=== PATIENT | female | born 1985 | race American Indian/Alaskan Native ===

== ENCOUNTER 2016-06-17 03:30 | Outpatient (CLI) | payer MEDICAID ==
[2016-06-17 03:48] VITALS: BP 94/62
[2016-06-17 04:32] LABS: Bilirubin,Urine NEG (Negative); Blood,Urine NEG (Negative); Ketones,Urine NEG (Negative); Leukocyte Esterase,Urine NEG (Negative); Nitrite,Urine NEG (Negative); Protein,Urine <15 mg/dL mg/dL (Negative); RBC,Urine < 1.0 /HPF (0.0-6.0); Urobilinogen,Urine < 2.0 mg/dL (<2.0); WBC,Urine < 1.0 /HPF (0.0-6.0)
[2016-06-17] MEDS ORDERED: PERCOCET 5/325 PO ONE (04:32)
[2016-06-17] MEDS ORDERED: VISTARIL PO ONE (04:32)
== END 2016-06-17 04:52 | disposition home or self-care (01) ==
LOC: TRG 03:30
PROVIDERS: ATTEND Obstetrics & Gynecology
DX: O47.02 False labor before 37 completed weeks of gestation, second trimester (principal); Z3A.19 19 weeks gestation of pregnancy
CPT/HCPCS: 81001; Q0177

== ENCOUNTER 2016-07-07 00:58 | Emergency (ER) | payer MEDICAID ==
[2016-07-07 01:40] LABS: Bacteria,Urine 1+ /HPF (Negative); Bilirubin,Urine NEG (Negative); Blood,Urine NEG (Negative); Ketones,Urine NEG (Negative); Leukocyte Esterase,Urine SM (Negative); Mucus,Urine FEW /HPF; Nitrite,Urine NEG (Negative); Protein,Urine <15 mg/dL mg/dL (Negative); Urobilinogen,Urine < 2.0 mg/dL (<2.0)
[2016-07-07] MEDS ORDERED: ZOFRAN IV ONE (02:31)
[2016-07-07] MEDS ORDERED: NACL 0.9% 1000 ML 1,000 ML IV ONE (02:31)
[2016-07-07] MEDS ORDERED: TYLENOL #3 PO ONE (02:31)
[2016-07-07 03:02] LABS: Hematocrit 31.7 % (30.3-42.9); Hemoglobin 10.6 gm/dl (10.1-14.3); Mean Corpuscular HGB Conc 34 % (30-34); Mean Corpuscular Hemoglobin 30 pg (28-32); Mean Corpuscular Volume 90 fl (79-97); Platelet Count 280 K/mm3 (140-440); Red Blood Count 3.52 M/mm3 (3.65-5.03); Red Cell Distribution Width 14.5 % (13.2-15.2); White Blood Count 14.5 K/mm3 (4.5-11.0)
[2016-07-07 03:11] LABS: Alanine Aminotransferase 10 units/L (7-56); Albumin 3.3 g/dL (3.9-5); Albumin/Globulin Ratio 0.9 %; Alkaline Phosphatase 82 units/L (35-129); Anion Gap 17 mmol/L; Bilirubin,Total 0.8 mg/dL (0.1-1.2); Blood Urea Nitrogen 6 mg/dL (7-17); Calcium 8.7 mg/dL (8.4-10.2); Carbon Dioxide 22 mmol/L (22-30); Chloride 101.3 mmol/L (98-107); Glucose 72 mg/dL (65-100); Magnesium 1.9 mg/dL (1.7-2.3); Potassium 3.5 mmol/L (3.6-5.0); Sodium 137 mmol/L (137-145); Total Protein 6.9 g/dL (6.3-8.2)
[2016-07-07] MEDS ORDERED: MORPHINE IV ONE (04:00)
[2016-07-07 04:05] LABS: Anisocytosis 1+; Basophils % (Manual) 0 % (0.0-1.8); Blastocytes % (Manual) 0 %; Diff Status Complete; Elliptocytes Rare; Eosinophils % (Manual) 0 % (0.0-4.3); Polychromasia Rare
[2016-07-07 06:00] VITALS: BP 102/70
--- NOTE | 2016-07-07 06:23 | Emergency Department Report ---
HPI - General Chief Complaint: Back Pain/Injury Time Seen by Provider: 07/07/16 02:41 - HPI HPI: The patient is a , EGA 24 weeks, female that presents for evaluation of back pain. The patient reports pain to the left lower back since 10 PM last night, constant since onset, 10/10 in severity, sharp in quality, radiating into the left lower leg, exacerbated with movement of the left leg at the hip joint or of the left lower back. The patient denies blunt trauma to the back, fever, chills, night sweats, abdominal pain, vaginal discharge, vaginal bleeding , saddle anesthesia, paresthesias, numbness or tingling in the legs, leg weakness, urine or bowel incontinence or retention, difficulty ambulating, or other focal neurological deficits. ED Past Medical Hx - Past Medical History Previous Medical History?: Yes Hx Hypertension: No Hx Congestive Heart Failure: No Hx Diabetes: No Hx Deep Vein Thrombosis: No Hx Renal Disease: No Hx Sickle Cell Disease: No Hx Seizures: No Hx Psychiatric Treatment: Yes (anxiety) Hx Asthma: No Hx COPD: No Hx HIV: No Additional medical history: collapsed r) lung - Surgical History Past Surgical History?: Yes Additional Surgical History: csection lung surg - Social History Smoking Status: Never Smoker Substance Use Type: None - Medications Home Medications: Home Medications Medication Instructions Recorded Confirmed Last Taken Type Azithromycin [Zithromax] 250 mg PO QDAY #4 tablet 08/31/15 Unknown Rx Doxylamine/Pyridoxine HCl 1 each PO Q6HR PRN #30 tablet. 08/31/15 Unknown Rx [Amilcar Kirby 10-10 mg Tablet] Vit W-Ca,Fe,FA(<1 mg) 1 each PO QDAY #30 tablet 08/31/15 Unknown Rx [ Vitamins] Acetaminophen/Codeine [Tylenol #3] 1 tab PO Q6H PRN #7 tab 07/07/16 Unknown Rx Ondansetron [Zofran TAB] 4 mg PO Q8HR PRN #15 tablet 07/07/16 Unknown Rx ED Review of Systems ROS: Stated complaint: LT LEG/BACK PAIN,WEAKNESS Other details as noted in HPI Constitutional: denies: fever ENT: denies: throat or neck pain Respiratory: denies: cough, shortness of breath Cardiovascular: denies: chest pain Endocrine: denies unexplained weight loss or gain Gastrointestinal: denies: abdominal pain, nausea Genitourinary: denies: dysuria Musculoskeletal: reports back pain denies: leg swelling Skin: denies: rash Neurological: denies: headache Hematological/Lymphatic: denies: easy bleeding or easy bruising Psych: denies sadness or hopelessness Physical Exam - Physical Exam Vital Signs: Vital Signs 07/07/16 01:25 Pulse Rate 86 Respiratory 18 Rate Blood Pressure 96/57 [Right] O2 Sat by Pulse 99 Oximetry Physical Exam: General: well-nourished, well-developed, no acute distress Head: Normocephalic, atraumatic Eyes: normal sclera ENT: Mucous membranes are pale and dry Neck: No neck stiffness, no cervical adenopathy Respiratory: Breath sounds equal bilaterally, no wheezing, rales, or rhonchi Cardio: S1 and S2 present, no murmurs, rubs, gallops, capillary refill is delayed Abdomen: Normoactive bowel sounds, soft abdomen, no tenderness Chest WALL/Back: No tenderness to palpation of the chest wall, no CVA tenderness with percussion Musc: Tenderness to palpation present to left lower lumbar paraspinal musculature, pain is elicited with flexion at the hip, normal active range of motion at the hip intact, no spinous step-off or obvious deformity, ipsi- lateral and contralateral straight leg raise tests are negative. On extremity testing, compartments are soft and pliable, no obvious gross motor strength deficit, 5+ motor strength, including extension of the great toe bilaterally, no muscular atrophy, spasticity, fasciculations, or clonus, no obvious gross sensation deficit including web space between 1st and 2nd toes, reflexes 2+ & symmetric on DTR testing at the knee and ankle joints, distal pulses intact. Skin: No rash Neuro: no facial drooping, normal speech Psych: Normal affect ED Course Vital Signs 07/07/16 01:25 Pulse Rate 86 Respiratory 18 Rate Blood Pressure 96/57 [Right] O2 Sat by Pulse 99 Oximetry ED Medical Decision Making - Lab Data Result diagrams: 07/07/16 02:33 07/07/16 02:33 - Medical Decision Making The patient was seen and examined by myself. The patient is placed on a microfabrication engineer manager and continuous pulse ox. On initial evaluation, the patient was found to be in no distress. No findings on exam concerning for cauda equina syndrome, spinal stenosis, or epidural abscess . As the patient has no midline tenderness on exam, no neuro deficits, and no findings concerning for emergent etiology of their back pain, imaging will not be obtained at this time. The patient is given a tablet of Tylenol 3 for her pain and 1 L normal saline fluid bolus for treatment of her dehydration. heart tones were obtained and were found to be within normal limits at 160. The patient was reevaluated and reported that their pain was minimally improved. The patient was given an IV dose of Dilaudid which significantly improved their pain. The patient is stable for discharge with outpatient follow-up. The patient is given follow-up and return instructions. The patient expressed understanding and agreed with the plan. The patient is discharged in stable condition. Critical care attestation.: If time is entered above; I have spent that time in minutes in the direct care of this critically ill patient, excluding procedure time. ED Disposition Clinical Impression: Dehydration, Acute left-sided low back pain without sciatica Disposition: DISCHARGED TO HOME OR SELFCARE Is pt being admited?: No Does the pt Need Aspirin: No Condition: Stable Instructions: Low Back Strain (ED), Acute Low Back Pain (ED), Dehydration (ED) Referrals: PRIMARY CARE, [Primary Care Provider] - 3-5 Days [facility] [Provider Group] - 3-5 Days Time of Disposition: 05:21
== END 2016-07-07 06:01 | disposition home or self-care (01) ==
LOC: ED 00:58
DX: E86.0 Dehydration (principal); M54.5 Low back pain; F41.9 Anxiety disorder, unspecified; Z88.2 Allergy status to sulfonamides
CPT/HCPCS: 36415; 80053; 81001; 82962; 83735; 85007; 85025; 96361; 96374; 96375; J2270; J2405; J7030

== ENCOUNTER 2016-07-14 19:10 | Outpatient (CLI) | payer MEDICAID ==
[2016-07-14 19:56] VITALS: BP 96/55
[2016-07-14] MEDS ORDERED: LACTATED RINGERS 1,000 ML IV ONE (20:04)
[2016-07-14 20:20] LABS: Bilirubin,Urine NEG (Negative); Blood,Urine NEG (Negative); Ketones,Urine NEG (Negative); Leukocyte Esterase,Urine NEG (Negative); Mucus,Urine FEW /HPF; Nitrite,Urine NEG (Negative); Protein,Urine <15 mg/dL mg/dL (Negative); Urobilinogen,Urine < 2.0 mg/dL (<2.0); WBC,Urine < 1.0 /HPF (0.0-6.0)
[2016-07-14] MEDS ORDERED: VISTARIL PO ONE (20:48)
== END 2016-07-14 21:35 | disposition home or self-care (01) ==
LOC: TRG 19:10
PROVIDERS: ATTEND Obstetrics & Gynecology
DX: O26.892 Other specified pregnancy related conditions, second trimester (principal); R10.32 Left lower quadrant pain; Z3A.24 24 weeks gestation of pregnancy
CPT/HCPCS: 81001; 96360; 96361; J7120; Q0177

== ENCOUNTER 2016-07-15 02:45 | Outpatient (CLI) | payer MEDICAID ==
[2016-07-15] MEDS ORDERED: LACTATED RINGERS 500 ML IV ONE (03:07)
[2016-07-15] MEDS ORDERED: LACTATED RINGERS 1,000 ML ONE (03:10)
--- NOTE | 2016-07-15 04:15 | Ultrasound Report ---
FINAL REPORT PROCEDURE: US RENAL BILAT TECHNIQUE: Real-time sonography in multiple planes of the kidneys, ureters and urinary bladder was performed with image documentation. CPT 69454 HISTORY: rule out kidney stone- lower left quadrant pain COMPARISON: No prior studies are available for comparison. FINDINGS: RIGHT kidney: Normal echotexture. No focal renal mass, calculus, or hydronephrosis. Length: 9.7 cm. LEFT kidney: Normal echotexture. No focal renal mass, calculus, or hydronephrosis. Length: 10.5cm. Bladder: Normal. IMPRESSION: Normal Examination.
[2016-07-15] MEDS ORDERED: SUBLIMAZE IV ONE (04:39)
[2016-07-15] MEDS ORDERED: SUBLIMAZE ONE (04:54)
[2016-07-15] MEDS ORDERED: LACTATED RINGERS 1,000 ML IV SCH (06:00)
--- NOTE | 2016-07-15 06:41 | History and Physical Report ---
History of Present Illness Date of examination: 07/15/16 (pt c/o severe left side pain) Chief complaint: pain is so bad I cant walk History of present illness: Pt called c/o left side and back pain that radiates down left leg. Pt was seen and triage and found not to be in labor and was given 100 of vistaril. She then called provider after getting home stating she started having the pain again but not in the back but just the left lower abdomen. Pt was advised she may need to return to triage to have sonogram to check for kidney stone as this pain could be related. Pt has no h/o stones and has no UTI sx. I also advised that I could provide a rx for pain but that she would need to come to office after 9am to order picker/assembler but that the renal sonogram would still suggested if she continued to have pain. Pt expressed understanding stating she will wait until office hours at this time but would return to triage should pain con't or worsen. Pt does have sciatic pain that has been present for several weeks now. Initial call taken by: Cony Sparks MD, July 15, 2016 2:15 AM EDC Confirmation: 10/31/2016 Gestational Age: 17 4/7 weeks Past History : 4 Term Births: 1 Premature Births: 2 Living Children: 5 Para: 3 Mult. Births: 1 Aborta: 0 # 1 Delivery date: 04/15/2003 Weeks Gestation: 40 labor: no Delivery type: Hours of labor: 6 Anesthesia type: iv Delivery location: [facility] Sex: Male weight: 7-4 Name: Kenroy # 2 Delivery date: 01/21/2009 Weeks Gestation: 32 labor: yes Delivery type: Hours of labor: 12 Anesthesia type: spinal Delivery location: [facility] Comments: Twins Jesse 4-12 /Rosalinda 3-10 # 3 Delivery date: 10/12/2013 Weeks Gestation: 36.0 Delivery type: Anesthesia type: epidural/general Delivery location: [facility] Sex: male/male Comments: hemorrhage Twin A: apgars 6/7 wt 2667g Twin B: agpars 8/8 wt 2041g Risk Factors: Smoked Tobacco Use: Never smoker Passive smoke exposure: no Drug use: no HIV high-risk behavior: low risk Caffeine use: 1 drinks per day Alcohol use: no Seatbelt use: preg-direct care counselor % Dietary Counseling: pn yes Past Medical History: Reviewed history from 05/28/2013 and no changes required: collapsed lung (2001) Past Surgical History: (2008) x 2 Chest tube (2001) Past Medical History Surgery (Non-peanut sorter): (2008) x 2 Chest tube (2001) Abnormal PAP: negative EARLINE Exposure: negative Infertility: negative Uterine Anomaly: negative Uterine Surgery (not C/S): negative Other Gynecologic Problems: negative Social Hx: Patient is Infection History Hx of STD: none HIV Risk Eval: low risk Hepatitis B Risk Eval: low risk Personal hx. of genital herpes: no Partner hx. of genital herpes: no Rash, Viral, or Febrile illness since last LMP? no Varicella/Chicken Pox Status: Previous Disease TB Risk: no Genetic History Congenital Heart Defect: Mom: no Dad: no Miguel Angel Disease: Mom: no Dad: no Thalassemia Mom: no Dad: no Neural Tube Defect Mom: no Dad: no Down's Syndrome Mom: no Dad: no Elncho-Sachs Mom: no Dad: no Sickle Cell Disease/Trait Mom: no Dad: no Hemophilia Mom: no Dad: no Muscular Dystrophy Mom: no Dad: no Cystic Fibrosis Mom: no Dad: no Holly Chorea Mom: no Dad: no Mental Retardation Mom: no Dad: no Fragile X Mom: no Dad: no Other Genetic/Chromosomal Disorder Mom: no Dad: no Child w/other defect Mom: no Dad: no Enviromental Exposures Xray Exposure: no Medication, drug, or alcohol use since LMP: no Chemical/Other Exposure: no Exposure to Cat Liter: no Hx of Parvovirus (Fifth Disease): no Occupational Exposure to Children: none FALSECurrent Allergies (reviewed today): SULFA (Critical) Laboratory Results Date/Time Collected: 05/27/2016 Routine Urinalysis Leukocytes: negative Nitrite: negative Urobilinogen: negative Protein: Negative Blood: negative Ketone: negative Bilirubin: negative Glucose: Negative Urine HCG: positive Review of Systems General Denies fever, chills, sweats, anorexia, fatigue, weakness, malaise, weight loss and sleep disorder. Denies nausea, vomiting, headache, swelling of legs, abdominal pain, vaginal discharge, vaginal bleeding and contractions. Denies vaginal discharge, incontinence, dysuria, hematuria, urinary frequency, amenorrhea, menorrhagia, abnormal vaginal bleeding, pelvic pain, genital sores, decreased libido, painful periods, painful sex, urinary urgency, hot flashes, vaginal dryness, vaginal itching and vaginal odor. CV Denies chest pains, palpitations, syncope, dyspnea on exertion, orthopnea, PND and peripheral edema. Resp Denies cough, dyspnea at rest, excessive sputum, hemoptysis, wheezing and pleurisy. GI Denies nausea, vomiting, diarrhea, constipation, change in bowel habits, abdominal pain, melena, hematochezia, jaundice, gas/bloating, indigestion/ heartburn, dysphagia and odynophagia. Endo Denies cold intolerance, heat intolerance, polydipsia, polyphagia, polyuria and unusual weight change. Breast Denies left breast lump, right breast lump, nipple discharge, bloody discharge from nipple, breast pain, abnormal mammogram and breast enlargement. MS Denies back pain, joint pain, joint swelling, muscle cramps, muscle weakness, stiffness, arthritis, sciatica, restless legs, leg pain at night and leg pain with exertion. Derm Denies rash, itching, dryness and suspicious lesions. Neuro Denies paralysis, paresthesias, headache, seizures, tremors, vertigo, transient blindness, frequent falls, frequent headaches and difficulty walking. Psych Denies depression, anxiety, irritability and mood swings. Eyes Denies blurring, diplopia, irritation, discharge, vision loss, eye pain and photophobia. ENT Denies earache, ear discharge, tinnitus, decreased hearing, nasal congestion, nosebleeds, sore throat and hoarseness. Allergy Denies urticaria, allergic rash, hay fever and recurrent infections. Heme Denies abnormal bruising, bleeding and enlarged lymph nodes. PHYSICAL EXAM HEENT: PERRLA, normal conjunctiva, external nose and nasal mucosa normal, oropharynx clear Neck/Thyroid: supple, thyroid normal Skin no significant abnormal lesions or rashes Chest: respiratory effort normal, clear to auscultation Breasts: normal without skin changes or masses CV: regular, normal S1-S2, no murmur, no rub, no gallop Abdomen: normal bowel sounds, soft, nontender, no HSM Musculoskeletal: grossly normal ROM in joints, no joint tenderness or muscle weakness Neuro: grossly normal DTRs, sensation, strength, cranial nerves Extremities: no clubbing, cyanosis, or edema Past History - Obstetrical History Expected Date of Delivery: 10/31/16 Actual Gestation: 24 Week(s) 4 Day(s) : 4 Para: 3 (twins X 2) Spontaneous Abortions: 0 Number of Living Children: 5 Medications and Allergies Allergies Allergy/AdvReac Type Severity Reaction Status Date / Time Sulfa (Sulfonamide Allergy Hives Verified 07/07/16 01:12 Antibiotics) Home Medications Medication Instructions Recorded Confirmed Last Taken Type Azithromycin [Zithromax] 250 mg PO QDAY #4 tablet 08/31/15 Unknown Rx Doxylamine/Pyridoxine HCl 1 each PO Q6HR PRN #30 tablet. 08/31/15 Unknown Rx [Diclegis Dr 10-10 mg Tablet] Vit W-Ca,Fe,FA(<1 mg) 1 each PO QDAY #30 tablet 08/31/15 Unknown Rx [ Vitamins] Acetaminophen/Codeine [Tylenol #3] 1 tab PO Q6H PRN #7 tab 07/07/16 Unknown Rx Ondansetron [Zofran TAB] 4 mg PO Q8HR PRN #15 tablet 07/07/16 Unknown Rx Active Meds: Active Medications Lactated Ringer's (Lactated Ringers) 1,000 mls @ 125 mls/hr IV DIRECT SCARLET Last Admin: 07/15/16 05:22 Dose: 125 mls/hr - Vital Signs Vital signs: Vital Signs Pulse Pulse Ox 67 98 07/15/16 02:48 07/15/16 02:48 Temp Pulse Resp BP Pulse Ox 97.6 F 63 18 95/53 100 07/15/16 05:18 07/15/16 06:33 07/15/16 05:18 07/15/16 05:03 07/15/16 06:33 - Physical Exam Breasts: Cardiovascular: Regular rate, Normal S1, Normal S2 Abdomen: Positive: normal appearance, soft, normal bowel sounds, other (tender to touch on left side). Negative: distention, tenderness Vulva: both: normal Vagina: Positive: normal moisture. Negative: discharge Cervix: Negative: lesion, discharge Uterus: Positive: normal size, normal contour, tender (left side only) Adnexa: both: normal Anus/Rectum: Positive: normal perianal skin, heme negative. Negative: rectal mass, hemorrhoids Extremities: Positive: normal Deep Tendon Reflex Grade: Normal +2 - Obstetrical FHR: auscultation normal Uterine Contraction Monitor Mode: External Uterine Contraction Pattern: Absent Uterine Tone Measurement Phase: Resting Results All other labs normal. Laboratory Data-Patient Name: RITU CAZARES Test Date Result Blood Type 06/21/2016 AB Rh 06/21/2016 Positive Antibody Screen Rubella 06/21/2016 Serology (RPR) 06/21/2016 HBsAg 06/21/2016 Negative Hemoglobin 06/21/2016 11.0 Hematocrit 06/21/2016 33.1 Platelets 06/21/2016 254 [id number]/UL Chlamydia DNA 05/27/2016 Negative GC DNA/Culture 05/27/2016 Urine Culture 06/21/2016 Final report Group B Strep cult PAP 05/28/2013 Normal, Satisfactory HIV 06/21/2016 AFP/Quad Screen Glucola Test 3hr GTT (Fasting) 1 hr 2 hr 3 hr OPTIONAL LABS-Patient Name:RITU CAZARES Test Date Result Varicella Ab Sickle Cell 06/21/2016 Negative PPD Fibronectin Cystic Fibrosis Parvovirus TSH Free T4 Hepatitis C ALT AST Uric Acid Creatinine 24 hr Urine Protein SARAH Assessment and Plan - Patient Problems (1) 24 weeks gestation of Onset Date: ~07/15/16 Current Visit: Yes Status: Acute (2) Left sided abdominal pain of unknown cause Onset Date: Unknown Current Visit: Yes Status: Acute Plan to address problem: Pt lying in LDR bed stating pain is present and only improves when she is very still. "any movement makes it worse." Pt denies LOF, bleeding, contractions. Reports +FM.FHR + on monitor. Kidney US done negative for stones Nl evaluation. Labs drawn UA sent IUP @ 24 weeks with ongoing left side pain P: complete evaluation Consult with
[2016-07-15 07:04] LABS: Bilirubin,Urine NEG (Negative); Blood,Urine NEG (Negative); Ketones,Urine NEG (Negative); Leukocyte Esterase,Urine NEG (Negative); Mucus,Urine FEW /HPF; Nitrite,Urine NEG (Negative); Protein,Urine <15 mg/dL mg/dL (Negative); Urobilinogen,Urine < 2.0 mg/dL (<2.0)
[2016-07-15 07:06] LABS: Hematocrit 33.4 % (30.3-42.9); Mean Corpuscular HGB Conc 33 % (30-34); Mean Corpuscular Hemoglobin 30 pg (28-32); Mean Corpuscular Volume 90 fl (79-97); Platelet Count 260 K/mm3 (140-440); Red Cell Distribution Width 14.9 % (13.2-15.2); White Blood Count 12.3 K/mm3 (4.5-11.0)
[2016-07-15 07:17] LABS: Alanine Aminotransferase 7 units/L (7-56); Albumin 3.1 g/dL (3.9-5); Albumin/Globulin Ratio 0.9 %; Alkaline Phosphatase 78 units/L (35-129); Anion Gap 16 mmol/L; Blood Urea Nitrogen 7 mg/dL (7-17); Calcium 8.8 mg/dL (8.4-10.2); Carbon Dioxide 23 mmol/L (22-30); Chloride 101.2 mmol/L (98-107); Glucose 98 mg/dL (65-100); Sodium 136 mmol/L (137-145); Total Protein 6.5 g/dL (6.3-8.2)
[2016-07-15] MEDS: VISTARIL PO PRN ×2 (07:51→14:48)
[2016-07-15 09:02] LABS: Blastocytes % (Manual) 0 %; Eosinophils % (Manual) 0 % (0.0-4.3)
[2016-07-15 09:03] LABS: Anisocytosis 1+; Diff Status Complete; Polychromasia Rare
--- NOTE | 2016-07-15 10:36 | Ultrasound Report ---
ULTRASOUND OB GREATER THAN 14 WEEKS FETUS History: Abdominal pain during . Technique: Transabdominal ultrasound with Doppler interrogation. Gestation: Single Position: Breech Amniotic Fluid: Normal CRISTHIAN = 11.4 cm Placenta: Posterior, low-lying Placental Grade: 0 The inferior edge of the placenta is 1.8 cm from the internal cervical os. Heart Rate: 148 BPM Cervical length: 4.30 cm (Normal > 3 cm) NEUROANATOMY VISUALIZED: Choroid Plexus Cisterna Magnum Cerebellum Lateral Ventricle ANATOMY VISUALIZED: Stomach Kidneys Bladder Diaphragm 4 Chamber Heart Heart 3 Vessel Cord Abd. Cord Insert SPINE VISUALIZED: Longitudinal Transverse BPD: 5.8 cm = 23 w 5 d HC: 22.7 cm = 24 w 5 d AC: 19.5 cm = 24 w 1 d FL: 4.4 cm = 24 w 2 d HC/AC Ratio: 1.2 Cephalic Index: 73.6 Estimated Weight: 677 grams LMP: Not given Clinical age = 24 w 4 d EDC: 10/31/16 US Gest. Age = 24 w 2 d EDC: 11/02/16
--- NOTE | 2016-07-15 14:41 | Discharge Summary ---
Providers - Providers Date of discharge: 07/15/16 (Pt ask to f/u tomorrow with ) Attending physician: CORTES VELÁSQUEZ Primary care physician: CORTES VELÁSQUEZ Hospitalization Reason for admission: other (left side pain) Discharge diagnosis: other (IUP @ 24weeks left side pain Poss round ligament/ sciatica) Hospital course: pt presented with c/o worsening left flank pain. Kidney US wnl No evidence stone. All labs and UA wnl Reviewed with . US WNL with exception of low lying placenta. Pt given precautions prior to d/c. Pelvic rest. Call with any vaginal bleeding Pt has appt for f/u in office tomorrow. Condition at discharge: Good Disposition: DISCHARGED TO HOME OR SELFCARE - Discharge Diagnoses (1) 24 weeks gestation of Status: Acute (2) Left sided abdominal pain of unknown cause Status: Acute Comment: appt made for 07-16-16 for PNV and GTT Plan - Provider Discharge Summary Activity: other (pelvic rest ) Diet: routine Additional instructions: [] Smoking cessation referral if applicable(refer to patient education folder for contact #) [] Refer to [facility] Booklet Call your doctor immediately for: * Fever > 100.5 * Heavy vaginal bleeding ( >1 pad per hour) * Severe persistent headache * Shortness of breath * Reddened, hot, painful area to leg or breast * Drainage or odor from incision. * Keep incision clean and dry at all times and follow doctor's instructions regarding bathing/showering - Follow up plan Follow up: CORTES VELÁSQUEZ MD [Primary Care Provider] - 07/16/16 (Please call with any concerns. [phone])
[2016-07-15 14:51] VITALS: BP 98/60
== END 2016-07-15 16:23 | disposition home or self-care (01) ==
LOC: SPVWC 02:45 → TRG 02:46 → LD 05:17 → SPVWC 16:23
PROVIDERS: ATTEND Obstetrics & Gynecology
DX: O32.1XX0 Maternal care for breech presentation, not applicable or unspecified (principal); O26.892 Other specified pregnancy related conditions, second trimester; R10.9 Unspecified abdominal pain; O47.02 False labor before 37 completed weeks of gestation, second trimester; Z3A.24 24 weeks gestation of pregnancy
CPT/HCPCS: 36415; 76770; 76805; 80053; 81001; 85007; 85025; J3010; J7120; Q0177

== ENCOUNTER 2017-02-17 15:05 | Outpatient (CLI) | payer MEDICAID ==
--- NOTE | 2017-02-17 16:48 | Cat Scan Report ---
FINAL REPORT PROCEDURE: CT CHEST W CON TECHNIQUE: Computerized axial tomography of the chest was performed during the IV injection of iodinated nonionic contrast. HISTORY: DYSPNEA,DIZZINESS AND GIDDINESS COMPARISON: Chest CT dated August 31, 2015 TECHNICAL QUALITY: Satisfactory. FINDINGS: Multiple blebs are seen in the upper lungs, similar to prior study. No large bulla is seen. Likely mild scarring is seen in the right lung apex and appears less prominent than on prior study. Likely mild associated atelectasis is seen in the superior aspect of the right middle lobe laterally, associated with blebs. This appearance is stable. No pleural effusion is seen. Heart and thoracic aorta are normal in size. There is no evidence of aortic dissection. No mediastinal lymphadenopathy is seen. A pulmonary embolus protocol is not performed but no large proximal pulmonary embolus is seen. Moderate scoliosis is similar to prior study. IMPRESSION: Mild to moderate changes of COPD are similar to prior study. No acute abnormality is seen.
== END 2017-02-17 15:06 | disposition home or self-care (01) ==
LOC: CT 15:05
PROVIDERS: ATTEND Nurse Practitioner
DX: J44.9 Chronic obstructive pulmonary disease, unspecified (principal); J98.4 Other disorders of lung; M41.84 Other forms of scoliosis, thoracic region; R42 Dizziness and giddiness
CPT/HCPCS: 71260; Q9967

== ENCOUNTER 2017-10-16 10:01 | Emergency (ER) | payer MEDICAID ==
--- NOTE | 2017-10-16 10:56 | Emergency Department Report ---
Chief Complaint: Dyspnea/Respdistress Stated Complaint: DIFF BREATHING Time Seen by Provider: 10/16/17 10:35 - HPI History of Present Illness: 32 year-old female presents to the emergency department with complaint of midsternal chest pain and upper abdominal pain, with associated shortness of breath, that has been going on since waking up this morning. She denies any current nausea, vomiting, fever, dysuria, vaginal bleeding or discharge. She has not taken anything for her symptoms prior to presentation. She denies any past medical history. She denies any tobacco or illicit drug use or abuse. - ROS Review of Systems: Positive for chest pain, shortness breath, abdominal pain Negative for vaginal bleeding or discharge, dysuria, fever - Exam Vital Signs: Vital Signs 10/16/17 10:10 Temperature 98.3 F Pulse Rate 108 H Respiratory 22 Rate Blood Pressure 125/85 O2 Sat by Pulse 98 Oximetry Physical Exam: Heart and lungs sounds are normal to auscultation. There is some upper abdominal pain to palpation but the abdomen is soft and nondistended. MSE screening note: Focused history and physical exam performed. Due to findings the following was ordered: The patient will have a CBC, CMP, lipase, troponin, d-dimer and a test. If negative for she will have a chest and abdominal x-ray. ED Disposition for MSE Condition: Stable Referrals: PRIMARY CARE, [Primary Care Provider] - 3-5 Days
[2017-10-16 11:31] LABS: Bilirubin,Urine NEG (Negative); Blood,Urine NEG (Negative); Color,Urine Yellow (Yellow); Mucus,Urine 3+ /HPF
[2017-10-16 11:31] LABS: Basophils % (Auto) 0.4 % (0.0-1.8); Eosinophils # (Auto) 0.2 K/mm3 (0.0-0.4); Eosinophils % (Auto) 1.8 % (0.0-4.3); Hematocrit 39.9 % (30.3-42.9); Hemoglobin 13.8 gm/dl (10.1-14.3); Lymphocytes # (Auto) 2.2 K/mm3 (1.2-5.4); Lymphocytes % (Auto) 20.8 % (13.4-35.0); Mean Corpuscular HGB Conc 35 % (30-34); Mean Corpuscular Hemoglobin 32 pg (28-32); Mean Corpuscular Volume 93 fl (79-97); Monocytes # (Auto) 0.6 K/mm3 (0.0-0.8); Monocytes % (Auto) 5.6 % (0.0-7.3); Platelet Count 240 K/mm3 (140-440); Red Blood Count 4.28 M/mm3 (3.65-5.03); Red Cell Distribution Width 13.7 % (13.2-15.2)
[2017-10-16] MEDS ORDERED: MORPHINE IV ONE ×2 (11:42→13:30)
[2017-10-16] MEDS ORDERED: NACL 0.9% 1000 ML 1,000 ML IV ONE (11:42)
[2017-10-16 11:49] LABS: Alanine Aminotransferase 34 units/L (7-56); Albumin 4.3 g/dL (3.9-5); BUN/Creatinine Ratio 11; Blood Urea Nitrogen 9 mg/dL (7-17); Calcium 9.5 mg/dL (8.4-10.2); Hemolysis Index 0; Lipase 37 units/L (13-60)
--- NOTE | 2017-10-16 12:35 | Emergency Department Report ---
ED Chest Pain HPI - General Chief Complaint: Dyspnea/Respdistress Stated Complaint: DIFF BREATHING Time Seen by Provider: 10/16/17 10:35 Source: patient, family, EMS Mode of arrival: Wheelchair Limitations: No Limitations - History of Present Illness Initial Comments: 32 year-old female presents to the emergency department with complaint of midsternal chest pain and upper abdominal pain, with associated shortness of breath, that has been going on since waking up this morning. She denies any current nausea, vomiting, fever, dysuria, vaginal bleeding or discharge. She has not taken anything for her symptoms prior to presentation. Patient has a primary care doctor and she says she has a swimming coach because she had something wrong with her stomach in the past in the upper to mid area but she cannot remember and remember her and that they said it was some kind of inflammation. Patient with mild anxiety and crying. Pain to chest which is epigastric area is 7 out of 10 and crampy. Pain is intermittent. No medication taken for pain. Pain is worse with palpation and movement but no alleviating factors. Patient denies any bloody stool. Denies any diarrhea. Denies any similar incidents with anyone that she is been around. Denies vaginal bleeding or discharge. Denies any urinary burning frequency or urgency. Denies any history of heart disease or acid reflux. Denies any history of hernia. MD Complaint: chest pain, other (epigastric pain) -: This morning Onset: during rest, awoke with symptoms Pain Location: epigastric Pain Radiation: none Severity: severe Severity scale (0 -10): 8 Quality: tightness Consistency: constant Improves With: nothing Worsens With: nothing Context: other (unknown) re: dyspnea (shortness of breath), other (anxiety). denies: nausea, vomting, diaphoresis, sense of impending doom Other Symptoms: denies: cough, fever, syncope, rash, acid taste in mouth, leg swelling, palpitations, burping Treatments Prior to Arrival: none Aspirin use within the Past 7 Days: (1) Yes - Related Data On Oral Contraceptives: No Previous Rx's Medication Instructions Recorded Last Taken Type Acetaminophen/Codeine [Tylenol #3] 1 tab PO Q6H PRN #7 tab 07/07/16 1 Day Ago Rx ~09/12/16 Ibuprofen [Motrin 800 MG tab] 800 mg PO Q8HR PRN #30 tablet 09/13/16 Unknown Rx oxyCODONE /ACETAMINOPHEN [Percocet 1 - 2 tab PO Q4HR PRN #30 tab 09/13/16 Unknown Rx 5/325 mg] Docusate Sodium [Colace] 100 mg PO BID PRN #60 capsule 09/15/16 Unknown Rx Ferrous Sulfate [Feosol 325 MG tab] 325 mg PO BID #60 tablet 09/15/16 Unknown Rx Acetaminophen/Codeine [Tylenol 1 tab PO Q6H PRN #14 tab 10/16/17 Unknown Rx /Codeine # 3 tab] Ciprofloxacin HCl [Ciprofloxacin 500 mg PO Q12H 10 Days #20 tab 10/16/17 Unknown Rx TAB] Promethazine [Phenergan TAB] 25 mg PO Q6HR PRN #16 tab 10/16/17 Unknown Rx Allergies Allergy/AdvReac Type Severity Reaction Status Date / Time Sulfa (Sulfonamide Allergy Hives Verified 10/16/17 10:09 Antibiotics) Heart Score - HEART Score History: Slightly suspicious EKG: Normal Age: < 45 Risk factors: No known risk factors Troponin: < normal limit HEART Score: 0 - Critical Actions Critical Actions: 0-3 pts:0.9-1.7%risk of adverse cardiac event.Candidate for discharge ED Review of Systems ROS: Stated complaint: DIFF BREATHING Other details as noted in HPI Constitutional: denies: chills, fever, malaise, weakness Eyes: denies: eye pain, eye discharge, vision change ENT: denies: ear pain, throat pain, congestion Respiratory: denies: cough, shortness of breath, SOB with exertion, SOB at rest , stridor, wheezing Cardiovascular: chest pain. denies: palpitations, dyspnea on exertion, edema, syncope Gastrointestinal: abdominal pain. denies: nausea, vomiting, diarrhea, constipation, hematemesis, melena, hematochezia Genitourinary: denies: urgency, dysuria, frequency, hematuria, discharge Musculoskeletal: denies: back pain, joint swelling, arthralgia Skin: denies: rash, lesions Neurological: headache. denies: weakness, paresthesias Psychiatric: anxiety ED Past Medical Hx - Past Medical History Previous Medical History?: Yes Hx Hypertension: No Hx Congestive Heart Failure: No Hx Diabetes: No Hx Deep Vein Thrombosis: No Hx Renal Disease: No Hx Sickle Cell Disease: No Hx Seizures: No Hx Psychiatric Treatment: Yes (anxiety) Hx Asthma: No Hx COPD: No Hx HIV: No Additional medical history: collapsed r) lung - Surgical History Past Surgical History?: Yes Additional Surgical History: csection lung surg - Family History Family history: hypertension - Social History Smoking Status: Never Smoker Substance Use Type: None - Medications Home Medications: Home Medications Medication Instructions Recorded Confirmed Last Taken Type Acetaminophen/Codeine [Tylenol #3] 1 tab PO Q6H PRN #7 tab 07/07/16 09/13/16 1 Day Ago Rx ~09/12/16 Ibuprofen [Motrin 800 MG tab] 800 mg PO Q8HR PRN #30 tablet 09/13/16 Unknown Rx oxyCODONE /ACETAMINOPHEN [Percocet 1 - 2 tab PO Q4HR PRN #30 tab 09/13/16 Unknown Rx 5/325 mg] Docusate Sodium [Colace] 100 mg PO BID PRN #60 capsule 09/15/16 Unknown Rx Ferrous Sulfate [Feosol 325 MG tab] 325 mg PO BID #60 tablet 09/15/16 Unknown Rx Acetaminophen/Codeine [Tylenol 1 tab PO Q6H PRN #14 tab 10/16/17 Unknown Rx /Codeine # 3 tab] Ciprofloxacin HCl [Ciprofloxacin 500 mg PO Q12H 10 Days #20 tab 10/16/17 Unknown Rx TAB] Promethazine [Phenergan TAB] 25 mg PO Q6HR PRN #16 tab 10/16/17 Unknown Rx ED Physical Exam - General Limitations: No Limitations General appearance: alert, in no apparent distress - Head Head exam: Present: atraumatic, normocephalic, normal inspection, other (normal exam) - Eye Eye exam: Present: normal appearance, PERRL, EOMI Pupils: Present: normal accommodation - ENT ENT exam: Present: normal exam, normal orophraynx, mucous membranes moist, TM's normal bilaterally, normal external ear exam - Neck Neck exam: Present: normal inspection, full ROM. Absent: tenderness, lymphadenopathy - Respiratory Respiratory exam: Present: normal lung sounds bilaterally. Absent: respiratory distress, wheezes, rales, rhonchi, stridor, chest wall tenderness, accessory muscle use, decreased breath sounds, prolonged expiratory - Cardiovascular Cardiovascular Exam: Present: normal rhythm, tachycardia, normal heart sounds, gallop. Absent: systolic murmur, diastolic murmur - GI/Abdominal GI/Abdominal exam: Present: soft, tenderness (right upper to mid quadrant), guarding, normal bowel sounds. Absent: distended, rebound, rigid, organomegaly , mass, bruit, pulsatile mass, hernia - Extremities Exam Extremities exam: Present: normal inspection, full ROM, normal capillary refill , other (No cce. + 2 pulses in all extremities, no neurovascular compromise). Absent: tenderness, pedal edema, joint swelling, calf tenderness - Back Exam Back exam: Present: normal inspection, full ROM, other (ambulates without difficulties). Absent: tenderness, CVA tenderness (R), CVA tenderness (L), muscle spasm, paraspinal tenderness, vertebral tenderness, rash noted - Neurological Exam Neurological exam: Present: alert, oriented X3, normal gait, reflexes normal. Absent: motor sensory deficit - Psychiatric Psychiatric exam: Present: anxious (anxious and cried with history of anxiety) - Skin Skin exam: Present: warm, dry, intact, normal color. Absent: rash ED Course Vital Signs 10/16/17 10/16/17 10/16/17 10:10 13:43 13:50 Temperature 98.3 F Pulse Rate 108 H Respiratory 22 17 17 Rate Blood Pressure 125/85 Blood Pressure [Left] O2 Sat by Pulse 98 Oximetry 10/16/17 14:10 Temperature 97.6 F Pulse Rate 76 Respiratory 16 Rate Blood Pressure Blood Pressure 109/75 [Left] O2 Sat by Pulse 100 Oximetry - Reevaluation(s) Reevaluation #1: 10/16/17 12:02 Patient was given normal saline 1 L, morphine 2 mg IV and Zofran for his 2 mg IV and up and reevaluation she reports that she still has abdominal pain to epigastric area mid abdomen going over to her right upper abdomen. No shortness of breath or chest pain. Reevaluation #2: 10/16/17 15:10 Patient given Toradol 30 mg IV, Zofran 4 mg IV and morphine 4 mg IV. Abdominal pain to mid upper and right upper abdomen. Patient denies any chest pain or shortness of breath at present. Still awaiting CTA chest and chest x-ray results. All other lab works are within normal limits. Reevaluation #3: 10/16/17 14:57 Patient pain is better. I discussed her CTA chest results and also chest x-ray results. Report mention emphysema patient's that she does not know anything about that. She does not smoke. I also discussed similar episode with her and patient says she has had some tenderness in her upper abdomen and she says she has had this in the past and went to [facility] and was told that she has some inflammation behind her stomach lining. Her pain is better with pain medication. It was decided the patient will have ultrasound off upper abdominal quadrants. Denies any nausea present. Reevaluation #4: 10/16/17 17:48 Ultrasound of abdomen complete report patient was gallstones. This is discussed the patient and she already goes [facility]. I told her she needs to call tomorrow and schedule an appointment for follow-up visit. Her pain has been resolved and she is no longer anxious. Patient able to tolerate oral liquids. JIMBO score - Jimbo Score Age > 65: (0) No Aspirin use within the Past 7 Days: (0) No 3 or more CAD Risk Factors: (0) No 2 or more Angina events in past 24 hrs: (0) No Known CAD with more than 50% Stenosis: (0) No Elevated Cardiac Markers: (0) No ST Deviation Greater than 0.5mm: (0) No JIMBO Score: 0 ED Medical Decision Making - Lab Data Result diagrams: 10/16/17 11:12 10/16/17 11:12 Lab Results 10/16/17 10/16/17 10/16/17 Range/Units 11:12 11:12 11:12 WBC 10.5 (4.5-11.0) K/mm3 RBC 4.28 (3.65-5.03) M/mm3 Hgb 13.8 (10.1-14.3) gm/dl Hct 39.9 (30.3-42.9) % MCV 93 (79-97) fl MCH 32 (28-32) pg MCHC 35 H (30-34) % RDW 13.7 (13.2-15.2) % Plt Count 240 (140-440) K/mm3 Lymph % (Auto) 20.8 (13.4-35.0) % [place] % (Auto) 5.6 (0.0-7.3) % Eos % (Auto) 1.8 (0.0-4.3) % Baso % (Auto) 0.4 (0.0-1.8) % Lymph # 2.2 (1.2-5.4) K/mm3 [place] # 0.6 (0.0-0.8) K/mm3 Eos # 0.2 (0.0-0.4) K/mm3 Baso # 0.0 (0.0-0.1) K/mm3 Seg Neutrophils % 71.4 H (40.0-70.0) % Seg Neutrophils # 7.5 (1.8-7.7) K/mm3 D-Dimer 1525.23 H (0-234) ng/mlDDU Sodium 141 (137-145) mmol/L Potassium 3.8 (3.6-5.0) mmol/L Chloride 103.7 (98-107) mmol/L Carbon Dioxide 26 (22-30) mmol/L Anion Gap 15 mmol/L BUN 9 (7-17) mg/dL Creatinine 0.8 (0.7-1.2) mg/dL Estimated GFR > 60 ml/min BUN/Creatinine Ratio 11 % Glucose 85 (65-100) mg/dL Calcium 9.5 (8.4-10.2) mg/dL Total Bilirubin 1.00 (0.1-1.2) mg/dL AST 35 (5-40) units/L ALT 34 (7-56) units/L Alkaline Phosphatase 103 (35-129) units/L Troponin T < 0.010 (0.00-0.029) ng/mL Total Protein 7.2 (6.3-8.2) g/dL Albumin 4.3 (3.9-5) g/dL Albumin/Globulin Ratio 1.5 % Lipase 37 (13-60) units/L HCG, Qual (Negative) Urine Color (Yellow) Urine Turbidity (Clear) Urine pH (5.0-7.0) Ur Specific [place]ola (1.003-1.030) Urine Protein (Negative) mg/dL Urine Glucose (UA) (Negative) mg/dL Urine Ketones (Negative) mg/dL Urine Blood (Negative) Urine Nitrite (Negative) Urine Bilirubin (Negative) Urine Urobilinogen (<2.0) mg/dL Ur Leukocyte Esterase (Negative) Urine WBC (Auto) (0.0-6.0) /HPF Urine RBC (Auto) (0.0-6.0) /HPF U Epithel Cells (Auto) (0-13.0) /HPF Urine Mucus /HPF 10/16/17 10/16/17 Range/Units 11:12 11:15 WBC (4.5-11.0) K/mm3 RBC (3.65-5.03) M/mm3 Hgb (10.1-14.3) gm/dl Hct (30.3-42.9) % MCV (79-97) fl MCH (28-32) pg MCHC (30-34) % RDW (13.2-15.2) % Plt Count (140-440) K/mm3 Lymph % (Auto) (13.4-35.0) % [place] % (Auto) (0.0-7.3) % Eos % (Auto) (0.0-4.3) % Baso % (Auto) (0.0-1.8) % Lymph # (1.2-5.4) K/mm3 [place] # (0.0-0.8) K/mm3 Eos # (0.0-0.4) K/mm3 Baso # (0.0-0.1) K/mm3 Seg Neutrophils % (40.0-70.0) % Seg Neutrophils # (1.8-7.7) K/mm3 D-Dimer (0-234) ng/mlDDU Sodium (137-145) mmol/L Potassium (3.6-5.0) mmol/L Chloride (98-107) mmol/L Carbon Dioxide (22-30) mmol/L Anion Gap mmol/L BUN (7-17) mg/dL Creatinine (0.7-1.2) mg/dL Estimated GFR ml/min BUN/Creatinine Ratio % Glucose (65-100) mg/dL Calcium (8.4-10.2) mg/dL Total Bilirubin (0.1-1.2) mg/dL AST (5-40) units/L ALT (7-56) units/L Alkaline Phosphatase (35-129) units/L Troponin T (0.00-0.029) ng/mL Total Protein (6.3-8.2) g/dL Albumin (3.9-5) g/dL Albumin/Globulin Ratio % Lipase (13-60) units/L HCG, Qual Negative (Negative) Urine Color Yellow (Yellow) Urine Turbidity Clear (Clear) Urine pH 5.0 (5.0-7.0) Ur Specific [place]ola 1.032 H (1.003-1.030) Urine Protein 30 mg/dl (Negative) mg/dL Urine Glucose (UA) Neg (Negative) mg/dL Urine Ketones Neg (Negative) mg/dL Urine Blood Neg (Negative) Urine Nitrite Neg (Negative) Urine Bilirubin Neg (Negative) Urine Urobilinogen 4.0 (<2.0) mg/dL Ur Leukocyte Esterase Tr (Negative) Urine WBC (Auto) 4.0 (0.0-6.0) /HPF Urine RBC (Auto) 6.0 (0.0-6.0) /HPF U Epithel Cells (Auto) 6.0 (0-13.0) /HPF Urine Mucus 3+ /HPF - EKG Data -: EKG Interpreted by Me (Dr. Moran) EKG shows normal: sinus rhythm Rate: normal (sinus rhythm at 83 bpm) - EKG Data Interpretation: no acute changes, normal EKG - Radiology Data Radiology results: report reviewed Patient had CT chest which shows no acute findings, she also had a chest x-ray which shows no acute findings. Patient had ultrasound abdominal completes which shows cholelithiasis without any acute inflammation or biliary dilatation. Report was dictated by a radiologist and reviewed by myself. Please see details below. Patient: RITU CAZARES MR#: [id number] : 1985 Acct:[id number] Age/Sex: 32 / F ADM Date: 10/16/17 Loc: ED Attending Dr: Ordering Physician: TERESE MORAN DO Date of Service: 10/16/17 Procedure(s): XR abd series w cxr 1V Accession Number(s): [id number] cc: TERESE MORAN DO Fluoro Time In Minutes: FINAL REPORT EXAM: XR Acute Abdomen Series CLINICAL INDICATIONS: CP, abd pain FINDINGS: Frontal view of the chest was acquired as well as apparent views of the abdomen. The heart is normal in size. The lungs appear clear. The pleura and mediastinum are within normal limits. There is scoliosis convex left centered at L2. There is an IUD. IMPRESSION: NO ACTIVE DISEASE IN THE CHEST NO BOWEL OBSTRUCTION Transcribed By: LD Dictated By: EFFIE MCNAMARA MD Electronically Authenticated By: EFFIE MCNAMARA MD Signed Date/Time: 10/16/17 141 DD/ 141 TD/TT: 10/16/17 [address] [address] Cat Scan Report Signed Patient: RITU CAZARES MR#: [id number] : 1985 Acct:[id number] Age/Sex: 32 / F ADM Date: 10/16/17 Loc: ED Attending Dr: Ordering Physician: TERESE MORAN DO Date of Service: 10/16/17 Procedure(s): CT angio chest Accession Number(s): [id number] cc: TERESE MORAN DO FINAL REPORT EXAM: CT ANGIO CHEST HISTORY: CP, elevated dimer COMPARISON: CT of the chest performed on 02/17/2017 TECHNIQUE: Multiple contiguous axial images were obtained from the thoracic inlet to the upper abdomen after administration of IV contrast. Reformatted sagittal and coronal images were available for review. FINDINGS: Medical devices: None. Thyroid: Normal. Lymph nodes: No significant mediastinal, hilar, or axillary lymphadenopathy. Vasculature: No filling defect within the pulmonary to suggest pulmonary embolism. Normal caliber of the thoracic aorta. Conventional branching pattern of the aortic arch. Heart: Normal heart size. Other mediastinal structures: Lung parenchyma: Again seen is paraseptal emphysematous change and peripheral fibrotic change in the bilateral upper lobes. Airways: Patent. No bronchiectasis. Pleura: No pleural effusion or pneumothorax. Chest wall and spine: No suspicious osseous lesions. No acute fracture or dislocation. The soft tissues are normal. Upper Abdomen: Normal. IMPRESSION: 1. No evidence of pulmonary embolism. 2. Paraseptal emphysematous change and peripheral fibrotic change in the bilateral upper lobes, similar in appearance to the previous study. Transcribed By: IRWIN Dictated By: LAURIE ALANIS MD Electronically Authenticated By: LAURIE ALANIS MD Signed Date/Time: 10/16/17 140 DD/ 140 TD/TT: 10/16/17 [address] [address] Ultrasound Report Signed Patient: RITU CAZARES MR#: [id number] : 1985 Acct:[id number] Age/Sex: 32 / F ADM Date: 10/16/17 Loc: ED Attending Dr: Ordering Physician: JARRETT HUMPHREYS Date of Service: 10/16/17 Procedure(s): US abdomen complete Accession Number(s): [id number] cc: JARRETT HUMPHREYS FINAL REPORT EXAM: US ABDOMEN COMPLETE HISTORY: abdominal pain upper quadrants COMPARISON: Renal ultrasound from July 2016. TECHNIQUE: Several real-time grayscale and color Doppler images were obtained. FINDINGS: Homogeneous echogenicity the visualized portions of the liver and pancreas. Visualized portal vein is patent. Common bile duct measures 5-6 millimeters, borderline dilated. No gallbladder wall thickening. No pericholecystic fluid. Technologist notes negative sonographic Bob sign. Small shadowing gallstones are present. Right kidney measures 10.5 centimeters in length. Left kidney measures 10.1 centimeters in length. No focal renal lesion or hydronephrosis. Spleen is normal in size measuring 8.5 centimeters in length. Visualized aorta is normal in caliber. Visualized IVC is normal in caliber. IMPRESSION: Cholelithiasis without secondary signs of acute inflammation or biliary dilatation. Transcribed By: LMA Dictated By: RENAN FARR MD Electronically Authenticated By: RENAN FARR MD Signed Date/Time: 10/16/171625 DD/ 25 TD/TT: 10/16/171625 - Medical Decision Making This is a 32-year-old female presenting to the emergency room with epigastric pain with some shortness of breath that she says she awoke with this morning. Patient with history of abdominal problems but she cannot give me details but she was still having gastroenterology and she said they told her that she had some inflammation at one point. She has no history of cardiac problems. She has a history of anxiety. Denies any history of lung disease but reported that she had collapsed lungs in the past which she had procedure and she is fine at present. Patient is very anxious and crying. She is reporting pain. Patient was screened by Dr. Dhaliwal and orders place. I examined patient and her physical exam is normal except she has tenderness to palpate to right upper quadrant extending over to epigastric area. No chest wall tenderness. Her lungs are clear and O2 sats are normal. She had mild tachycardia which has resolved. Patient has no ecchymotic course swollen area to chest wall. She does not have any history of cardiac disease but said that she had collapsed lungs in the past which she had surgery. Patient is up on arrival to the emergency room initially was very anxious and crying but that has subsided. Her vital signs are stable except for mild tachycardia. He is afebrile. Abdomen is soft without any rigidity and normal bowel sounds. No palpable mass or hernia felt. Patient had patient has CBC which was stable, test negative. CMP and lipase normal. Troponin normal. Urinalysis shows increased specific gravity without any ketone. Due to shortness of breath and chest pain patient had CTA chest due to shortness of breath and chest pain which shows no acute finding to include pulmonary embolism. She had chest x-ray which shows no acute finding, patient had abdominal ultrasound due to tenderness to right upper and mid quadrant of her abdomen and this shows that she has gallstones without any gallbladder dilatation or inflammatory processes. These tests were dictated by radiologist and reports reviewed by myself. I explained result of diagnostic tests, laboratory finding, EKG and physical findings of patient and she voiced understanding. I discussed with her that she will need to follow-up with her primary care and to call [facility] who she sees tomorrow to schedule an appointment for follow-up visit in 1-2 days. I also discussed with her that if her abdominal pain returns and/or chest pain shortness of breath and she developed nausea vomiting, distention and abdomen, fever or chills to return to the emergency room [facility] and she is in agreement. Patient pain was controlled. She is no longer anxious and she says she feels better. Assessment/plan Gallstones without cholecystitis-patient to follow up with primary care and [facility]. Ultrasound upper quadrant revealed gallstones without any inflammatory process. We will send home on ciprofloxacin Atypical chest pain with shortness of breath-patient troponin negative, EKG was normal sinus rhythm. Patient with low cardiac scores and JIMBO score 0. CT of the chest negative, chest x-ray negative for any acute findings Abdominal pain ,upper abdomen/biliary colic-patient received Toradol 30 mg IV, morphine a total of 6 mg IV, Zofran total of 8 mg IV and her pain is resolved and no episode of nausea vomiting or diarrhea and emergency room. She received IV fluids 1 L and she is able to tolerate water without any nausea or vomiting or pain. Anxiety-resolved Patient to follow-up with her primary care physician and [facility] in one to 2 days. She voiced understanding. Patient will be discharged home on Tylenol 3, ciprofloxacin, Phenergan. And her pain is controlled and she has no nausea vomiting or diarrhea. She has no chest pain or shortness of breath. - Differential Diagnosis pulmonary embolism, PNa, hiatal hernia,GBD, OBD,UTI Critical care attestation.: If time is entered above; I have spent that time in minutes in the direct care of this critically ill patient, excluding procedure time. ED Disposition Clinical Impression: Colic, biliary, Atypical chest pain, Shortness of breath, Anxiety about health Abdominal pain Qualifiers: Abdominal location: upper abdomen, unspecified Qualified Code(s): R10.10 - Upper abdominal pain, unspecified Disposition: DC- TO HOME OR SELFCARE Is pt being admited?: No Does the pt Need Aspirin: No Condition: Stable Instructions: Chest Pain (ED), Anxiety (ED), Acute Abdominal Pain (ED), Biliary Colic (ED), Dyspnea (ED) Additional Instructions: Your abdominal ultrasound shows a gallstones without any signs of infection annually to follow-up with a swimming coach as discussed. Follow-up in one to 2 days Follow-up with your primary care physician in one to 2 days Please utilize diet that is more liquid, no spicy food, no fatty or fried food and no carbonated beverage. Utilize bland diet over the next 72 hours Take Tylenol 3 for pain but presented to our operating room machinery as this medication causes drowsiness Take ciprofloxacin antibiotic Take phenergan for nausea or vomiting but presented several frequent heavy machinery while taking this medication She develop increasing abdominal pain, chest pain, shortness of breath, nausea and/or vomiting, abdominal distention, fever and or chills and weakness please return to emergency room [facility] Referrals: PRIMARY [facility] [Referring] - 10/17/17 [facility] [Provider Group] - 10/17/17 Forms: Accompanied Note, Work/School Release Form(ED)
[2017-10-16] MEDS ORDERED: TORADOL IV ONE (13:30)
[2017-10-16] MEDS ORDERED: ZOFRAN IM ONE (13:30)
[2017-10-16] MEDS ORDERED: ZOFRAN IV ONE (13:38)
--- NOTE | 2017-10-16 14:06 | Cat Scan Report ---
FINAL REPORT EXAM: CT ANGIO CHEST HISTORY: CP, elevated dimer COMPARISON: CT of the chest performed on 02/17/2017 TECHNIQUE: Multiple contiguous axial images were obtained from the thoracic inlet to the upper abdomen after administration of IV contrast. Reformatted sagittal and coronal images were available for review. FINDINGS: Medical devices: None. Thyroid: Normal. Lymph nodes: No significant mediastinal, hilar, or axillary lymphadenopathy. Vasculature: No filling defect within the pulmonary to suggest pulmonary embolism. Normal caliber of the thoracic aorta. Conventional branching pattern of the aortic arch. Heart: Normal heart size. Other mediastinal structures: Lung parenchyma: Again seen is paraseptal emphysematous change and peripheral fibrotic change in the bilateral upper lobes. Airways: Patent. No bronchiectasis. Pleura: No pleural effusion or pneumothorax. Chest wall and spine: No suspicious osseous lesions. No acute fracture or dislocation. The soft tissues are normal. Upper Abdomen: Normal. IMPRESSION: 1. No evidence of pulmonary embolism. 2. Paraseptal emphysematous change and peripheral fibrotic change in the bilateral upper lobes, similar in appearance to the previous study.
[2017-10-16 14:11] VITALS: BP 109/75
--- NOTE | 2017-10-16 14:20 | XRay Report ---
FINAL REPORT EXAM: XR Acute Abdomen Series CLINICAL INDICATIONS: CP, abd pain FINDINGS: Frontal view of the chest was acquired as well as apparent views of the abdomen. The heart is normal in size. The lungs appear clear. The pleura and mediastinum are within normal limits. There is scoliosis convex left centered at L2. There is an IUD. IMPRESSION: NO ACTIVE DISEASE IN THE CHEST NO BOWEL OBSTRUCTION
--- NOTE | 2017-10-16 16:31 | Ultrasound Report ---
FINAL REPORT EXAM: US ABDOMEN COMPLETE HISTORY: abdominal pain upper quadrants COMPARISON: Renal ultrasound from July 2016. TECHNIQUE: Several real-time grayscale and color Doppler images were obtained. FINDINGS: Homogeneous echogenicity the visualized portions of the liver and pancreas. Visualized portal vein is patent. Common bile duct measures 5-6 millimeters, borderline dilated. No gallbladder wall thickening. No pericholecystic fluid. Technologist notes negative sonographic Bob sign. Small shadowing gallstones are present. Right kidney measures 10.5 centimeters in length. Left kidney measures 10.1 centimeters in length. No focal renal lesion or hydronephrosis. Spleen is normal in size measuring 8.5 centimeters in length. Visualized aorta is normal in caliber. Visualized IVC is normal in caliber. IMPRESSION: Cholelithiasis without secondary signs of acute inflammation or biliary dilatation.
== END 2017-10-16 18:24 | disposition home or self-care (01) ==
LOC: ED 10:01
DX: K80.50 Calculus of bile duct without cholangitis or cholecystitis without obstruction (principal); R07.89 Other chest pain; R06.02 Shortness of breath; Z88.2 Allergy status to sulfonamides; F41.9 Anxiety disorder, unspecified
CPT/HCPCS: 36415; 71275; 74022; 76700; 80053; 81001; 83690; 84484; 84703; 85025; 85379; 93005; 93010; 96374; 96375; 96376; 99285; J1885; J2270; J2405; J7030; Q9967

== ENCOUNTER 2017-10-30 19:27 | Emergency (ER) | payer MEDICAID ==
[2017-10-30] MEDS ORDERED: NACL 0.9% 1000 ML 1,000 ML IV ONE ×2 (20:03→21:07)
[2017-10-30 20:25] LABS: Basophils # (Auto) 0.1 K/mm3 (0.0-0.1); Basophils % (Auto) 0.5 % (0.0-1.8); Eosinophils # (Auto) 0.1 K/mm3 (0.0-0.4); Eosinophils % (Auto) 0.5 % (0.0-4.3); Hemoglobin 14.3 gm/dl (10.1-14.3); Lymphocytes # (Auto) 1.9 K/mm3 (1.2-5.4); Lymphocytes % (Auto) 16.1 % (13.4-35.0); Mean Corpuscular HGB Conc 34 % (30-34); Mean Corpuscular Hemoglobin 31 pg (28-32); Mean Corpuscular Volume 92 fl (79-97); Monocytes # (Auto) 0.7 K/mm3 (0.0-0.8); Monocytes % (Auto) 5.6 % (0.0-7.3); Platelet Count 272 K/mm3 (140-440); Red Blood Count 4.55 M/mm3 (3.65-5.03); Red Cell Distribution Width 13.7 % (13.2-15.2)
[2017-10-30 20:53] LABS: Alanine Aminotransferase 25 units/L (7-56); Albumin 4.5 g/dL (3.9-5); BUN/Creatinine Ratio 16; Blood Urea Nitrogen 11 mg/dL (7-17); Calcium 9.6 mg/dL (8.4-10.2); Hemolysis Index 6; Lipase 25 units/L (13-60)
[2017-10-30 21:06] LABS: Bilirubin,Urine NEG (Negative); Blood,Urine MOD (Negative); Color,Urine Yellow (Yellow); Mucus,Urine 2+ /HPF
[2017-10-30] MEDS ORDERED: DILAUDID IV ONE (21:06)
[2017-10-30] MEDS ORDERED: PEPCID IV ONE (21:06)
[2017-10-30] MEDS ORDERED: ZOFRAN IV ONE (21:06)
[2017-10-30 21:23] LABS: HCG Qualitative,Urine Negative (Negative)
--- NOTE | 2017-10-30 21:59 | Emergency Department Report ---
ED Abdominal Pain HPI - General Chief Complaint: Abdominal Pain Stated Complaint: CHEST/ABD PAIN Time Seen by Provider: 10/30/17 20:56 Source: patient, old records reviewed Mode of arrival: Ambulatory Limitations: No Limitations - History of Present Illness Initial Comments: 32-year-old female with past medical history of anxiety, gallstones, collapsed right lung, tubal ligation, and presents to the hospital with complaints of continued abdominal pain exacerbated for the last days. Pain is in the epigastric area radiates to the back. It is stabbing in nature, and today, was palpitation and movement. Patient was here on June 16 for similar pain and states it is getting worse. Previous medical record reviewed. Patient was here October 16 and had a elevated d-dimer. CT angiogram chest did not show signs of pulmonary embolism. Ultrasound showed cholelithiasis without cholecystitis. Patient was treated with ciprofloxacin, Phenergan, and Tylenol No. 3 and outpatient follow-up was advised. Patient followed up with general surgeon Dr. Leo on the and was told that he needs to follow with GI first. Patient states first available GI appointment was in the end of November. Patient states she has had an endoscopy last year that was unremarkable. She denies fever, melena, hematochezia, hematemesis, or diarrhea. Patient also stated that she developed vaginal bleeding today and states she typically does not have a menstrual cycle because she is both on Mirena and therefore for dysfunctional uterine bleeding Severity scale (0 -10): 10 - Related Data Previous Rx's Medication Instructions Recorded Last Taken Type Acetaminophen/Codeine [Tylenol #3] 1 tab PO Q6H PRN #7 tab 07/07/16 1 Day Ago Rx ~09/12/16 RX: Ibuprofen [Motrin 800 MG tab] 800 mg PO Q8HR PRN #30 tablet 09/13/16 Unknown Rx RX: oxyCODONE /ACETAMINOPHEN 1 - 2 tab PO Q4HR PRN #30 tab 09/13/16 Unknown Rx [Percocet 5/325 mg] Docusate Sodium [Colace] 100 mg PO BID PRN #60 capsule 09/15/16 Unknown Rx RX: Ferrous Sulfate [Feosol 325 MG 325 mg PO BID #60 tablet 09/15/16 Unknown Rx tab] Acetaminophen/Codeine [Tylenol 1 tab PO Q6H PRN #14 tab 10/16/17 Unknown Rx /Codeine # 3 tab] Ciprofloxacin HCl [Ciprofloxacin 500 mg PO Q12H 10 Days #20 tab 10/16/17 Unknown Rx TAB] Promethazine [Phenergan TAB] 25 mg PO Q6HR PRN #16 tab 10/16/17 Unknown Rx Famotidine [Pepcid] 20 mg PO BID #60 tablet 10/31/17 Unknown Rx HYDROcodone/APAP 5-325 [[place] 1 each PO Q6HR PRN #20 tablet 10/31/17 Unknown Rx 5/325] Allergies Allergy/AdvReac Type Severity Reaction Status Date / Time Sulfa (Sulfonamide Allergy Hives Verified 10/16/17 10:09 Antibiotics) ED Review of Systems ROS: Stated complaint: CHEST/ABD PAIN Other details as noted in HPI Comment: All other systems reviewed and negative ED Past Medical Hx - Past Medical History Hx Hypertension: No Hx Congestive Heart Failure: No Hx Diabetes: No Hx Deep Vein Thrombosis: No Hx Renal Disease: No Hx Sickle Cell Disease: No Hx Seizures: No Hx Psychiatric Treatment: Yes (anxiety) Hx Asthma: No Hx COPD: No Hx HIV: No Additional medical history: collapsed r) lung,gallstones - Surgical History Additional Surgical History: csection lung surg, tubiligation - Social History Smoking Status: Never Smoker Substance Use Type: None - Medications Home Medications: Home Medications Medication Instructions Recorded Confirmed Last Taken Type Acetaminophen/Codeine [Tylenol #3] 1 tab PO Q6H PRN #7 tab 07/07/16 09/13/16 1 Day Ago Rx ~09/12/16 RX: Ibuprofen [Motrin 800 MG tab] 800 mg PO Q8HR PRN #30 tablet 09/13/16 Unknown Rx RX: oxyCODONE /ACETAMINOPHEN 1 - 2 tab PO Q4HR PRN #30 tab 09/13/16 Unknown Rx [Percocet 5/325 mg] Docusate Sodium [Colace] 100 mg PO BID PRN #60 capsule 09/15/16 Unknown Rx RX: Ferrous Sulfate [Feosol 325 MG 325 mg PO BID #60 tablet 09/15/16 Unknown Rx tab] Acetaminophen/Codeine [Tylenol 1 tab PO Q6H PRN #14 tab 10/16/17 Unknown Rx /Codeine # 3 tab] Ciprofloxacin HCl [Ciprofloxacin 500 mg PO Q12H 10 Days #20 tab 10/16/17 Unknown Rx TAB] Promethazine [Phenergan TAB] 25 mg PO Q6HR PRN #16 tab 10/16/17 Unknown Rx Famotidine [Pepcid] 20 mg PO BID #60 tablet 10/31/17 Unknown Rx HYDROcodone/APAP 5-325 [[place] 1 each PO Q6HR PRN #20 tablet 10/31/17 Unknown Rx 5/325] ED Physical Exam - General Limitations: No Limitations - Other Other exam information: General: No limitations, patient is alert in no acute distress Head exam: Atraumatic, normocephalic Eyes exam: Normal appearance, pupils equal reactive to light, extraocular movements intact ENT: Moist mucous membrane, normal oropharynx Neck exam: Normal inspection, full range of motion, no meningismus nontender Respiratory exam: Clear to auscultation bilateral, no wheezes, rales, crackles Cardiovascular: Normal rate and rhythm, normal heart sounds Abdomen: Soft, nondistended, and nontender, with normal bowel sounds, no rebound, or guarding Extremity: Full range of motion normal inspection no deformity Back: Normal Inspection, full range of motion, no tenderness Neurologic: Alert, oriented x3, cranial nerves intact, no motor or sensory deficit Psychiatric: normal affect, normal mood Skin: Warm, dry, intact ED Course Vital Signs 10/30/17 10/30/17 10/30/17 19:44 19:52 19:59 Temperature 97.9 F 97.9 F 97.9 F Pulse Rate 88 95 H 95 H Respiratory 20 20 20 Rate Blood Pressure 127/87 127/89 Blood Pressure 127/87 [Right] O2 Sat by Pulse 100 100 100 Oximetry 10/30/17 10/30/17 10/30/17 22:24 22:54 23:00 Temperature Pulse Rate 87 Respiratory 18 16 14 Rate Blood Pressure 114/75 Blood Pressure [Right] O2 Sat by Pulse 98 Oximetry 10/31/17 01:09 Temperature Pulse Rate Respiratory 18 Rate Blood Pressure Blood Pressure [Right] O2 Sat by Pulse Oximetry ED Medical Decision Making - Lab Data Result diagrams: 10/30/17 20:16 10/30/17 20:16 Lab Results 10/30/17 10/30/17 10/30/17 Range/Units 20:16 20:16 20:41 WBC 12.1 H (4.5-11.0) K/mm3 RBC 4.55 (3.65-5.03) M/mm3 Hgb 14.3 (10.1-14.3) gm/dl Hct 42.0 (30.3-42.9) % MCV 92 (79-97) fl MCH 31 (28-32) pg MCHC 34 (30-34) % RDW 13.7 (13.2-15.2) % Plt Count 272 (140-440) K/mm3 Lymph % (Auto) 16.1 (13.4-35.0) % [place] % (Auto) 5.6 (0.0-7.3) % Eos % (Auto) 0.5 (0.0-4.3) % Baso % (Auto) 0.5 (0.0-1.8) % Lymph # 1.9 (1.2-5.4) K/mm3 [place] # 0.7 (0.0-0.8) K/mm3 Eos # 0.1 (0.0-0.4) K/mm3 Baso # 0.1 (0.0-0.1) K/mm3 Seg Neutrophils % 77.3 H (40.0-70.0) % Seg Neutrophils # 9.3 H (1.8-7.7) K/mm3 Sodium 140 (137-145) mmol/L Potassium 4.0 (3.6-5.0) mmol/L Chloride 101.9 (98-107) mmol/L Carbon Dioxide 24 (22-30) mmol/L Anion Gap 18 mmol/L BUN 11 (7-17) mg/dL Creatinine 0.7 (0.7-1.2) mg/dL Estimated GFR > 60 ml/min BUN/Creatinine Ratio 16 % Glucose 94 (65-100) mg/dL Calcium 9.6 (8.4-10.2) mg/dL Total Bilirubin 1.60 H (0.1-1.2) mg/dL AST 22 (5-40) units/L ALT 25 (7-56) units/L Alkaline Phosphatase 99 (35-129) units/L Troponin T < 0.010 (0.00-0.029) ng/mL Total Protein 7.9 (6.3-8.2) g/dL Albumin 4.5 (3.9-5) g/dL Albumin/Globulin Ratio 1.3 % Lipase 25 (13-60) units/L Urine Color Yellow (Yellow) Urine Turbidity Slightly-cloudy (Clear) Urine pH 5.0 (5.0-7.0) Ur Specific [place] 1.026 (1.003-1.030) Urine Protein 30 mg/dl (Negative) mg/dL Urine Glucose (UA) Neg (Negative) mg/dL Urine Ketones Neg (Negative) mg/dL Urine Blood Mod (Negative) Urine Nitrite Neg (Negative) Urine Bilirubin Neg (Negative) Urine Urobilinogen 2.0 (<2.0) mg/dL Ur Leukocyte Esterase Sm (Negative) Urine WBC (Auto) 9.0 H (0.0-6.0) /HPF Urine RBC (Auto) 15.0 (0.0-6.0) /HPF U Epithel Cells (Auto) 2.0 (0-13.0) /HPF Urine Mucus 2+ /HPF Urine HCG, Qual (Negative) 10/30/17 Range/Units 21:00 WBC (4.5-11.0) K/mm3 RBC (3.65-5.03) M/mm3 Hgb (10.1-14.3) gm/dl Hct (30.3-42.9) % MCV (79-97) fl MCH (28-32) pg MCHC (30-34) % RDW (13.2-15.2) % Plt Count (140-440) K/mm3 Lymph % (Auto) (13.4-35.0) % [place] % (Auto) (0.0-7.3) % Eos % (Auto) (0.0-4.3) % Baso % (Auto) (0.0-1.8) % Lymph # (1.2-5.4) K/mm3 [place] # (0.0-0.8) K/mm3 Eos # (0.0-0.4) K/mm3 Baso # (0.0-0.1) K/mm3 Seg Neutrophils % (40.0-70.0) % Seg Neutrophils # (1.8-7.7) K/mm3 Sodium (137-145) mmol/L Potassium (3.6-5.0) mmol/L Chloride (98-107) mmol/L Carbon Dioxide (22-30) mmol/L Anion Gap mmol/L BUN (7-17) mg/dL Creatinine (0.7-1.2) mg/dL Estimated GFR ml/min BUN/Creatinine Ratio % Glucose (65-100) mg/dL Calcium (8.4-10.2) mg/dL Total Bilirubin (0.1-1.2) mg/dL AST (5-40) units/L ALT (7-56) units/L Alkaline Phosphatase (35-129) units/L Troponin T (0.00-0.029) ng/mL Total Protein (6.3-8.2) g/dL Albumin (3.9-5) g/dL Albumin/Globulin Ratio % Lipase (13-60) units/L Urine Color (Yellow) Urine Turbidity (Clear) Urine pH (5.0-7.0) Ur Specific [place] (1.003-1.030) Urine Protein (Negative) mg/dL Urine Glucose (UA) (Negative) mg/dL Urine Ketones (Negative) mg/dL Urine Blood (Negative) Urine Nitrite (Negative) Urine Bilirubin (Negative) Urine Urobilinogen (<2.0) mg/dL Ur Leukocyte Esterase (Negative) Urine WBC (Auto) (0.0-6.0) /HPF Urine RBC (Auto) (0.0-6.0) /HPF U Epithel Cells (Auto) (0-13.0) /HPF Urine Mucus /HPF Urine HCG, Qual Negative (Negative) - EKG Data -: EKG Interpreted by Sc EKG shows normal: sinus rhythm, axis (qrs 70), QRS complexes (qrsd 88), ST-T waves (no stemi/t inv) Rate: normal (78) - EKG Data When compared to previous EKG there are: no significant change (10/16/17) - Radiology Data Radiology results: report reviewed FINAL REPORT PROCEDURE: CT ABDOMEN PELVIS W CON TECHNIQUE: Computerized axial tomography of the abdomen and pelvis was performed after the IV injection of iodinated nonionic contrast. HISTORY: persistant upper abd pain COMPARISON: No prior studies are available for comparison. FINDINGS: Visualized lower thorax: No significant abnormality. Liver: Normal size and attenuation. Spleen: Normal size and attenuation. Gallbladder and biliary system: Normal. Pancreas: Normal. Adrenals: Normal. Kidneys: Normal. GI tract: The stomach is normal. The small bowel has a normal caliber. The cecum, appendix and colon are normal.. Lymph nodes and mesentery: Normal. Vasculature: Normal. Bladder: Normal. Reproductive organs: There is an intrauterine device in the uterus. No pelvic masses. Peritoneum: No free fluid. Musculoskeletal structures: No significant abnormality. Other: A small fat containing umbilical hernia cavity is noted.. IMPRESSION: There is no evidence of intestinal or urinary tract obstruction. No ileus or enteritis. The appendix is normal. Small fat containing umbilical hernia FINDINGS: Liver: Normal size and echotexture with no evidence of cystic or solid mass lesions. Gallbladder: Gallbladder is well distended with normal outlines demonstrating normal wall thickness. Multiple calculi are noted in the gallbladder body and neck measuring up to 16 millimeters. There are no pericholecystic collections.. Intrahepatic bile ducts: Normal caliber . Extrahepatic bile ducts: Common duct is 4 millimeters in caliber.. Pancreas: Visualized pancreatic head and body demonstrate normal echotexture.. Aorta: Visualized portions appear normal. IVC: Visualized portions appear normal. RIGHT kidney: Normal echotexture. No focal renal mass, calculus, or hydronephrosis. Length: 10 x 4 x 4cm. LEFT kidney: Normal echotexture. No focal renal mass, calculus, or hydronephrosis . Length: 10 x 4 x 5cm. Spleen: Normal size and echotexture. No focal lesions. Intraperitoneal fluid: None . Other: None . IMPRESSION: Cholelithiasis without any evidence of cholecystitis. Otherwise unremarkable study.. - Medical Decision Making Right upper quadrant/epigastric pain secondary to cholelithiasis No signs of cholecystitis. Mild elevation in bili without the dilatation or elevated LFTs Pain control in the ED Vaginal bleeding History of DUB H&H, vital signs stable negative Patient does not have urinary symptoms Recommend follow-up with GI, surgery, [employer] - Differential Diagnosis [place], biliary colic, pancreatitis, cholecystitis Critical Care Time: No Critical care attestation.: If time is entered above; I have spent that time in minutes in the direct care of this critically ill patient, excluding procedure time. ED Disposition Clinical Impression: Cholelithiasis, Vaginal bleeding Disposition: TO HOME OR SELFCARE Is pt being admited?: No Does the pt Need Aspirin: No Condition: Stable Instructions: Biliary Colic (ED), Dysfunctional Uterine Bleeding (ED) Additional Instructions: Take the medication as prescribed. Follow-up with the specialist provided. Return if symptoms worsen if indicated by your discharge instructions. Prescriptions: Famotidine [Pepcid] 20 mg PO BID #60 tablet HYDROcodone/APAP 5-325 [[place] 5/325] 1 each PO Q6HR PRN #20 tablet PRN Reason: Pain Referrals: [facility] [Provider Group] - 3-5 Days KAREN LEO DO [Staff Physician] - 3-5 Days (General surgeon) RIGO BOLDEN MD [Primary Care Provider] - 3-5 Days (primary care doctor ) Time of Disposition: 01:26
--- NOTE | 2017-10-30 23:13 | Ultrasound Report ---
FINAL REPORT PROCEDURE: US ABDOMEN COMPLETE TECHNIQUE: Real-time sonography in multiple planes of the abdomen was performed with image documentation. CPT 01931 HISTORY: epigastric, ruq pain COMPARISON: 10/16/2017 FINDINGS: Liver: Normal size and echotexture with no evidence of cystic or solid mass lesions. Gallbladder: Gallbladder is well distended with normal outlines demonstrating normal wall thickness. Multiple calculi are noted in the gallbladder body and neck measuring up to 16 millimeters. There are no pericholecystic collections.. Intrahepatic bile ducts: Normal caliber . Extrahepatic bile ducts: Common duct is 4 millimeters in caliber.. Pancreas: Visualized pancreatic head and body demonstrate normal echotexture.. Aorta: Visualized portions appear normal. IVC: Visualized portions appear normal. RIGHT kidney: Normal echotexture. No focal renal mass, calculus, or hydronephrosis. Length: 10 x 4 x 4cm. LEFT kidney: Normal echotexture. No focal renal mass, calculus, or hydronephrosis . Length: 10 x 4 x 5cm. Spleen: Normal size and echotexture. No focal lesions. Intraperitoneal fluid: None . Other: None . IMPRESSION: Cholelithiasis without any evidence of cholecystitis. Otherwise unremarkable study..
[2017-10-31] MEDS ORDERED: DILAUDID IV ONE (00:12)
--- NOTE | 2017-10-31 01:00 | Cat Scan Report ---
FINAL REPORT PROCEDURE: CT ABDOMEN PELVIS W CON TECHNIQUE: Computerized axial tomography of the abdomen and pelvis was performed after the IV injection of iodinated nonionic contrast. HISTORY: persistant upper abd pain COMPARISON: No prior studies are available for comparison. FINDINGS: Visualized lower thorax: No significant abnormality. Liver: Normal size and attenuation. Spleen: Normal size and attenuation. Gallbladder and biliary system: Normal. Pancreas: Normal. Adrenals: Normal. Kidneys: Normal. GI tract: The stomach is normal. The small bowel has a normal caliber. The cecum, appendix and colon are normal.. Lymph nodes and mesentery: Normal. Vasculature: Normal. Bladder: Normal. Reproductive organs: There is an intrauterine device in the uterus. No pelvic masses. Peritoneum: No free fluid. Musculoskeletal structures: No significant abnormality. Other: A small fat containing umbilical hernia cavity is noted.. IMPRESSION: There is no evidence of intestinal or urinary tract obstruction. No ileus or enteritis. The appendix is normal. Small fat containing umbilical hernia
[2017-10-31] MEDS ORDERED: PERCOCET 5/325 PO ONE (01:14)
[2017-10-31 01:29] VITALS: BP 108/74
== END 2017-10-31 01:51 | disposition home or self-care (01) ==
LOC: ED 19:27
DX: K80.20 Calculus of gallbladder without cholecystitis without obstruction (principal); N93.9 Abnormal uterine and vaginal bleeding, unspecified; F41.9 Anxiety disorder, unspecified; Z98.51 Tubal ligation status; Z88.2 Allergy status to sulfonamides
CPT/HCPCS: 36415; 74177; 76700; 80053; 81001; 81025; 83690; 84484; 85025; 93005; 93010; 96361; 96374; 96375; 96376; 99284; J1170; J2405; J7030; Q9967

== ENCOUNTER 2017-11-13 01:34 | Emergency (ER) | payer MEDICAID ==
[2017-11-13 01:49] VITALS: BP 107/75
--- NOTE | 2017-11-13 02:32 | XRay Report ---
FINAL REPORT EXAM: XR RIBS UNI W PA CHEST 3+V RT HISTORY: Right ribs pain and upper right chest TECHNIQUE: A PA view the chest was obtained along with four views of the right ribs. The chest is compared the study of 10/16/2017. FINDINGS: There is no evidence of acute right-sided rib fracture. The right lung reveals scarring in the right upper lobe. Pleural fluid is not seen. The surrounding bones and soft tissues otherwise reveal an S-shaped thoracolumbar scoliosis. IMPRESSION: No evidence of acute right-sided rib fracture. Scarring in the right upper lobe. No acute infiltrates, pneumothorax or effusions.
[2017-11-13] MEDS ORDERED: TYLENOL #3 PO ONE (03:05)
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
== END 2017-11-13 03:28 | disposition home or self-care (01) ==
LOC: ED 01:34
DX: R07.89 Other chest pain (principal); Z88.2 Allergy status to sulfonamides; F41.9 Anxiety disorder, unspecified; Z98.51 Tubal ligation status
CPT/HCPCS: 99283

== ENCOUNTER 2018-04-12 15:55 | Emergency (ER) | payer SELFPAY ==
[2018-04-12 16:02] VITALS: BP 117/72
[2018-04-12] MEDS ORDERED: BENADRYL IV ONE (16:37)
[2018-04-12] MEDS ORDERED: REGLAN IV ONE (16:37)
[2018-04-12] MEDS ORDERED: NACL 0.9% 1000 ML 1,000 ML IV ONE (16:37)
[2018-04-12] MEDS ORDERED: TORADOL IV ONE (16:37)
--- NOTE | 2018-04-12 17:56 | Cat Scan Report ---
FINAL REPORT EXAM: CT HEAD/BRAIN WO CON HISTORY: headache TECHNIQUE: 2.5 millimeter axial images from the skullbase to the vertex. Comparison: None FINDINGS: There is no evidence of an acute intracranial process, intracranial hemorrhage or mass effect. The ventricles are normal size. The visualized portions of the orbits, paranasal and mastoid sinuses are unremarkable. The bony structures are unremarkable. IMPRESSION: 1. No evidence of an acute intracranial process, intracranial hemorrhage or mass effect. If the patient remains symptomatic and if further imaging is required, MRI may be helpful.
--- NOTE | 2018-04-12 18:21 | Emergency Department Report ---
ED Headache HPI - General Chief Complaint: Headache Stated Complaint: HEADACHE/EYE PAIN Time Seen by Provider: 04/12/18 16:33 - History of Present Illness Initial Comments: This is a 33-year-old female nontoxic, well nourished in appearance, no acute signs of distress presents to the ED with c/o of acute on chronic headache. Patient describes headache as diffuse with level of 8 out of 10. Patient also stated pain radiates to left side face/eye. Patient denies thunderclap headache. Patient denies any radiation of pain. Patient denies any head trauma. Patient denies any visual changes. Patient denies any floaters. Patient denies worse headache. Patient stated that darkness makes headache better and bright lights make the headache worse. Patient denies any numbness, tingling, fever, chills, nausea, vomiting, chest pain, shortness of breath, stiff neck. Patient denies any radiation of pain. Patient stated allergies to sulfa. Timing/Duration: episodic Quality: achy Head Injury Location: other (diffuse) Recent Head Trauma: no recent headache/trauma, occasional headaches Associated Symptoms: denies symptoms. denies: confusion, fatigue, facial pain, fever/chills, flushing, loss of consciousness, nausea/vomiting, nasal congestion, nasal drainage, numbness in legs/feet, rash, seizures, sinus infection, stiff neck, vision changes, weakness Allergies/Adverse Reactions: Allergies Sulfa (Sulfonamide Antibiotics) Allergy (Verified 10/16/17 10:09) Hives Home Medications: Ambulatory Orders Acetaminophen/Codeine [Tylenol #3] 1 tab PO Q6H PRN #7 tab 07/07/16 Ibuprofen [Motrin 800 MG tab] 800 mg PO Q8HR PRN #30 tablet 09/13/16 oxyCODONE /ACETAMINOPHEN [Percocet 5/325 mg] 1 - 2 tab PO Q4HR PRN #30 tab 09/13/16 Docusate Sodium [Colace] 100 mg PO BID PRN #60 capsule 09/15/16 Ferrous Sulfate [Feosol 325 MG tab] 325 mg PO BID #60 tablet 09/15/16 Acetaminophen/Codeine [Tylenol /Codeine # 3 tab] 1 tab PO Q6H PRN #14 tab 10/16/17 Ciprofloxacin HCl [Ciprofloxacin TAB] 500 mg PO Q12H 10 Days #20 tab 10/16/17 Promethazine [Phenergan TAB] 25 mg PO Q6HR PRN #16 tab 10/16/17 Famotidine [Pepcid] 20 mg PO BID #60 tablet 10/31/17 HYDROcodone/APAP 5-325 [[place] 5/325] 1 each PO Q6HR PRN #20 tablet 10/31/17 Acetaminophen/Codeine [Tylenol /Codeine # 3 tab] 1 tab PO Q6H PRN 3 Days #12 tab 11/13/17 Menthol/Camphor [[place] Ointment] 1 applic TP TID PRN #1 tube 11/13/17 Butalb/Acetamin/Caff 50-325-40 [Fioricet] 1 tab PO Q6HR PRN #12 tab 04/12/18 ED Review of Systems ROS: Stated complaint: HEADACHE/EYE PAIN Other details as noted in HPI Constitutional: denies: chills, fever Eyes: denies: eye pain, eye discharge, vision change ENT: denies: ear pain, throat pain Respiratory: denies: cough, shortness of breath, wheezing Cardiovascular: denies: chest pain, palpitations Endocrine: no symptoms reported Gastrointestinal: denies: abdominal pain, nausea, diarrhea Genitourinary: denies: urgency, dysuria, discharge Musculoskeletal: denies: back pain, joint swelling, arthralgia Skin: denies: rash, lesions Neurological: headache. denies: weakness, paresthesias Psychiatric: denies: anxiety, depression Hematological/Lymphatic: denies: easy bleeding, easy bruising ED Past Medical Hx - Past Medical History Hx Hypertension: No Hx Congestive Heart Failure: No Hx Diabetes: No Hx Deep Vein Thrombosis: No Hx Renal Disease: No Hx Sickle Cell Disease: No Hx Seizures: No Hx Psychiatric Treatment: Yes (anxiety) Hx Asthma: No Hx COPD: No Hx HIV: No Additional medical history: collapsed r) lung,gallstones - Surgical History Hx Cholecystectomy: Yes Additional Surgical History: c section X3, lung surg, tubal ligation - Social History Smoking Status: Never Smoker Substance Use Type: Alcohol - Medications Home Medications: Home Medications Medication Instructions Recorded Confirmed Last Taken Type Acetaminophen/Codeine [Tylenol #3] 1 tab PO Q6H PRN #7 tab 07/07/16 09/13/16 1 Day Ago Rx ~09/12/16 Ibuprofen [Motrin 800 MG tab] 800 mg PO Q8HR PRN #30 tablet 09/13/16 Unknown Rx oxyCODONE /ACETAMINOPHEN [Percocet 1 - 2 tab PO Q4HR PRN #30 tab 09/13/16 Unknown Rx 5/325 mg] Docusate Sodium [Colace] 100 mg PO BID PRN #60 capsule 09/15/16 Unknown Rx Ferrous Sulfate [Feosol 325 MG tab] 325 mg PO BID #60 tablet 09/15/16 Unknown Rx Acetaminophen/Codeine [Tylenol 1 tab PO Q6H PRN #14 tab 10/16/17 Unknown Rx /Codeine # 3 tab] Ciprofloxacin HCl [Ciprofloxacin 500 mg PO Q12H 10 Days #20 tab 10/16/17 Unknown Rx TAB] Promethazine [Phenergan TAB] 25 mg PO Q6HR PRN #16 tab 10/16/17 Unknown Rx Famotidine [Pepcid] 20 mg PO BID #60 tablet 10/31/17 Unknown Rx HYDROcodone/APAP 5-325 [[place] 1 each PO Q6HR PRN #20 tablet 10/31/17 Unknown Rx 5/325] Acetaminophen/Codeine [Tylenol 1 tab PO Q6H PRN 3 Days #12 tab 11/13/17 Unknown Rx /Codeine # 3 tab] Menthol/Camphor [[place] 1 applic TP TID PRN #1 tube 11/13/17 Unknown Rx Ointment] Butalb/Acetamin/Caff 50-325-40 1 tab PO Q6HR PRN #12 tab 04/12/18 Unknown Rx [Fioricet] ED Physical Exam - General Limitations: No Limitations General appearance: alert, in no apparent distress - Head Head exam: Present: atraumatic, normocephalic - Eye Eye exam: Present: normal appearance, PERRL, EOMI - Expanded Eye Exam Expanded IOP measured with: Tonopen (12,14,12-left eye) - Neck Neck exam: Present: normal inspection, full ROM. Absent: tenderness, meningismus, lymphadenopathy - Extremities Exam Extremities exam: Present: normal inspection, full ROM - Back Exam Back exam: Present: normal inspection, full ROM. Absent: tenderness, CVA tenderness (R), CVA tenderness (L), muscle spasm, paraspinal tenderness, vertebral tenderness, rash noted - Neurological Exam Neurological exam: Present: alert, oriented X3, normal gait - Expanded Neurological Exam Expanded Patient oriented to: Present: person, place, time Cranial nerves: EOM's Intact: Normal, Facial Sensation: Normal Cerebellar function: Finger to Nose: Normal Upper motor neuron: Pronator Drift: Normal, Sensory Extinction: Normal Sensory exam: Upper Extremity Light Touch: Normal, Upper Extremity Pin Prick: Normal, Upper Extremity Temperature: Normal, Lower Extremity Light Touch: Normal, Lower Extremity Pin Prick: Normal, Lower Extremity Temperature: Normal Motor strength exam: RUE: 5, LUE: 5, RLE: 5, LLE: 5 Best Eye Response (Cindy): (4) open spontaneously Best Motor Response (Cindy): (6) obeys commands Best Verbal Response (Cindy): (5) oriented Cindy Total: 15 - Psychiatric Psychiatric exam: Present: normal affect, normal mood - Skin Skin exam: Present: warm, dry, intact, normal color. Absent: rash ED Course Vital Signs 04/12/18 15:57 Temperature 98.7 F Pulse Rate 78 Respiratory 18 Rate Blood Pressure 117/72 O2 Sat by Pulse 99 Oximetry - Reevaluation(s) Reevaluation #1: 04/12/18 18:20 Patient is speaking in full sentences with no signs of distress noted. ED Medical Decision Making - Medical Decision Making This is a 33-year-old female that presents with headache. Patient is stable and was examined by me. Patient is neurologically stable. There is no stiff neck or neck pain. Vital signs are stable. Patient is afebrile. CT obtained and dictated by the radiologist. Patient is notified of the CT results with no questions noted by the patient. Patient received Benadryl, Reglan, Toradol, and 1 L of normal saline which the patient stated that headache has subsided and resolved. Patient was instructed not to operate any machinery after discharged due to drowsiness of Benadryl. Patient stated that a family member will drive patient home. Patient is discharged with Fioricet. Patient was referred to [facility] low-up with a primary care/neurologist doctor in 3-5 days or if symptoms worsen and continue return to emergency room as soon as possible. At time of discharge, the patient does not seem toxic or ill in appearance. No acute signs of distress noted. Patient agrees to discharge treatment plan of care. No further questions noted by the patient. Critical care attestation.: If time is entered above; I have spent that time in minutes in the direct care of this critically ill patient, excluding procedure time. ED Disposition Clinical Impression: Headache Qualifiers: Headache type: unspecified Headache chronicity pattern: episodic headache Intractability: not intractable Qualified Code(s): R51 - Headache Disposition: DC-01 TO HOME OR SELFCARE Is pt being admited?: No Does the pt Need Aspirin: No Condition: Stable Instructions: Acute Headache (ED), Butalbital/Aspirin/Caffeine (By mouth) Additional Instructions: Follow-up with a primary care doctor in 3-5 days or if symptoms worsen and continue return to emergency room as soon as possible. Prescriptions: Butalb/Acetamin/Caff 50-325-40 [Fioricet] 1 tab PO Q6HR PRN #12 tab PRN Reason: Headache Referrals: PRIMARY CARE, [Referring] - 3-5 Days RASHMI WU MD [Staff Physician] - 3-5 Days [facility] [Outside] - 3-5 Days [facility] [Outside] - 3-5 Days Forms: Work/School Release Form(ED)
== END 2018-04-12 19:00 | disposition home or self-care (01) ==
LOC: ED 15:55
DX: R51 Headache (principal); Z88.2 Allergy status to sulfonamides; F41.9 Anxiety disorder, unspecified; Z90.49 Acquired absence of other specified parts of digestive tract; Z98.51 Tubal ligation status
CPT/HCPCS: 70450; 96374; 96375; 99283; J1200; J1885; J2765; J7030

== ENCOUNTER 2018-10-31 22:13 | Emergency (ER) | payer SELFPAY ==
--- NOTE | 2018-10-31 22:18 | Emergency Department Report ---
Blank Doc - Documentation Documentation: This is a 33-year-old female that presents with pelvic pain with vaginal bleed ing and discharge. Stated that pain radiates to chest. This initial assessment/diagnostic orders/clinical plan/treatment(s) is/are subject to change based on patient's health status, clinical progression and re- assessment by fellow clinical providers in the ED. Further treatment and workup at subsequent clinical providers discretion. Patient/guardians urged not to elope from the ED as their condition may be serious if not clinically assessed and managed. Initial orders include: 1- Patient sent to [facility] for further evaluation and treatment 2- labs 3- UA
[2018-10-31 22:37] LABS: Basophils # (Auto) 0.1 K/mm3 (0.0-0.1); Basophils % (Auto) 0.9 % (0.0-1.8); Eosinophils # (Auto) 0.1 K/mm3 (0.0-0.4); Eosinophils % (Auto) 1.6 % (0.0-4.3); Hematocrit 40.8 % (30.3-42.9); Hemoglobin 13.9 gm/dl (10.1-14.3); Lymphocytes # (Auto) 3.2 K/mm3 (1.2-5.4); Lymphocytes % (Auto) 34.5 % (13.4-35.0); Mean Corpuscular HGB Conc 34 % (30-34); Mean Corpuscular Volume 97 fl (79-97); Monocytes # (Auto) 0.6 K/mm3 (0.0-0.8); Monocytes % (Auto) 6.8 % (0.0-7.3); Platelet Count 267 K/mm3 (140-440); Red Blood Count 4.22 M/mm3 (3.65-5.03); Red Cell Distribution Width 13.5 % (13.2-15.2)
[2018-10-31 23:01] LABS: Alanine Aminotransferase 10 units/L (7-56); Albumin 4.2 g/dL (3.9-5); BUN/Creatinine Ratio 14; Blood Urea Nitrogen 10 mg/dL (7-17); Calcium 9.2 mg/dL (8.4-10.2); Hemolysis Index 6
[2018-10-31 23:12] LABS: Bilirubin,Urine NEG (Negative); Blood,Urine NEG (Negative); Color,Urine Yellow (Yellow); Mucus,Urine FEW /HPF; Protein,Urine <15 mg/dL mg/dL (Negative)
[2018-11-01] MEDS ORDERED: IBUPROFEN PO ONE ×2 (03:11→03:12)
--- NOTE | 2018-11-01 03:27 | Emergency Department Report ---
<AYDIN ZHONG - Last Filed: 11/01/18 04:22> ED Abdominal Pain HPI - General Chief Complaint: Abdominal Pain Stated Complaint: ABDOMINAL PAIN, CHEST PAIN,LIGHT BLEEDING Time Seen by Provider: 10/31/18 22:17 Source: patient Mode of arrival: Ambulatory Limitations: No Limitations - History of Present Illness Initial Comments: 33 yo F complains of sharp abdominal pain that began yesterday. She stated that it felt like needles in her stomach MD Complaint: abdominal pain Severity scale (0 -10): 10 - Related Data Previous Rx's Medication Instructions Recorded Last Taken Type Acetaminophen/Codeine [Tylenol #3] 1 tab PO Q6H PRN #7 tab 07/07/16 1 Day Ago Rx ~09/12/16 Ibuprofen [Motrin 800 MG tab] 800 mg PO Q8HR PRN #30 tablet 09/13/16 Unknown Rx oxyCODONE /ACETAMINOPHEN [Percocet 1 - 2 tab PO Q4HR PRN #30 tab 09/13/16 Unknown Rx 5/325 mg] Docusate Sodium [Colace] 100 mg PO BID PRN #60 capsule 09/15/16 Unknown Rx Ferrous Sulfate [Feosol 325 MG tab] 325 mg PO BID #60 tablet 09/15/16 Unknown Rx Acetaminophen/Codeine [Tylenol 1 tab PO Q6H PRN #14 tab 10/16/17 Unknown Rx /Codeine # 3 tab] Ciprofloxacin HCl [Ciprofloxacin 500 mg PO Q12H 10 Days #20 tab 10/16/17 Unknown Rx TAB] Promethazine [Phenergan TAB] 25 mg PO Q6HR PRN #16 tab 10/16/17 Unknown Rx Famotidine [Pepcid] 20 mg PO BID #60 tablet 10/31/17 Unknown Rx HYDROcodone/APAP 5-325 [[place] 1 each PO Q6HR PRN #20 tablet 10/31/17 Unknown Rx 5/325] Acetaminophen/Codeine [Tylenol 1 tab PO Q6H PRN 3 Days #12 tab 11/13/17 Unknown Rx /Codeine # 3 tab] Menthol/Camphor [[place] 1 applic TP TID PRN #1 tube 11/13/17 Unknown Rx Ointment] Butalb/Acetamin/Caff 50-325-40 1 tab PO Q6HR PRN #12 tab 04/12/18 Unknown Rx [Fioricet] metroNIDAZOLE [Flagyl] 500 mg PO Q8HR 7 Days #21 tablet 11/01/18 Unknown Rx Allergies Allergy/AdvReac Type Severity Reaction Status Date / Time latex Allergy Unknown Verified 10/31/18 22:17 Sulfa (Sulfonamide Allergy Hives Verified 10/16/17 10:09 Antibiotics) ED Past Medical Hx - Past Medical History Previous Medical History?: Yes Hx Hypertension: No Hx Congestive Heart Failure: No Hx Diabetes: No Hx Deep Vein Thrombosis: No Hx Renal Disease: No Hx Sickle Cell Disease: No Hx Seizures: No Hx Psychiatric Treatment: Yes (anxiety) Hx Asthma: No Hx COPD: No Hx HIV: No Additional medical history: collapsed r) lung,gallstones - Surgical History Past Surgical History?: Yes Hx Cholecystectomy: Yes Additional Surgical History: c section X3, lung surg, tubal ligation - Social History Smoking Status: Never Smoker Substance Use Type: Alcohol - Medications Home Medications: Home Medications Medication Instructions Recorded Confirmed Last Taken Type Acetaminophen/Codeine [Tylenol #3] 1 tab PO Q6H PRN #7 tab 07/07/16 09/13/16 1 Day Ago Rx ~09/12/16 Ibuprofen [Motrin 800 MG tab] 800 mg PO Q8HR PRN #30 tablet 09/13/16 Unknown Rx oxyCODONE /ACETAMINOPHEN [Percocet 1 - 2 tab PO Q4HR PRN #30 tab 09/13/16 Unknown Rx 5/325 mg] Docusate Sodium [Colace] 100 mg PO BID PRN #60 capsule 09/15/16 Unknown Rx Ferrous Sulfate [Feosol 325 MG tab] 325 mg PO BID #60 tablet 09/15/16 Unknown Rx Acetaminophen/Codeine [Tylenol 1 tab PO Q6H PRN #14 tab 10/16/17 Unknown Rx /Codeine # 3 tab] Ciprofloxacin HCl [Ciprofloxacin 500 mg PO Q12H 10 Days #20 tab 10/16/17 Unknown Rx TAB] Promethazine [Phenergan TAB] 25 mg PO Q6HR PRN #16 tab 10/16/17 Unknown Rx Famotidine [Pepcid] 20 mg PO BID #60 tablet 10/31/17 Unknown Rx HYDROcodone/APAP 5-325 [[place] 1 each PO Q6HR PRN #20 tablet 10/31/17 Unknown Rx 5/325] Acetaminophen/Codeine [Tylenol 1 tab PO Q6H PRN 3 Days #12 tab 11/13/17 Unknown Rx /Codeine # 3 tab] Menthol/Camphor [[place] 1 applic TP TID PRN #1 tube 11/13/17 Unknown Rx Ointment] Butalb/Acetamin/Caff 50-325-40 1 tab PO Q6HR PRN #12 tab 04/12/18 Unknown Rx [Fioricet] metroNIDAZOLE [Flagyl] 500 mg PO Q8HR 7 Days #21 tablet 11/01/18 Unknown Rx ED Physical Exam - General Limitations: No Limitations ED Medical Decision Making - Lab Data Result diagrams: 10/31/18 22:26 10/31/18 22:26 ED Disposition Clinical Impression: Pelvic pain, Bacterial vaginosis Disposition: - TO HOME OR SELFCARE Condition: Stable Instructions: Abdominal Pain (ED), Bacterial Vaginosis (ED) Additional Instructions: Complete antibiotics as prescribed. Tylenol and/or Motrin as needed for pain management. Follow-up with your [facility] if her symptoms persist or gets worse. Prescriptions: metroNIDAZOLE [Flagyl] 500 mg PO Q8HR 7 Days #21 tablet Referrals: PATO PEREZ MD [Primary Care Provider] - 3-5 Days Forms: STI Treatment and Prevention <SINTIA MIKE - Last Filed: 11/01/18 07:03> ED Review of Systems ROS: Stated complaint: ABDOMINAL PAIN, CHEST PAIN,LIGHT BLEEDING Other details as noted in HPI ED Physical Exam - General Limitations: No Limitations General appearance: alert - Head Head exam: Present: atraumatic, normocephalic - Eye Eye exam: Present: normal appearance - ENT ENT exam: Present: normal exam, mucous membranes moist - GI/Abdominal GI/Abdominal exam: Present: soft, tenderness (rlq). Absent: distended - External exam: Present: normal external exam Speculum exam: Present: vaginal discharge Bi-manual exam: Present: normal bi-manual exam, uterine tenderness. Absent: c ervical motion tendernes, uterine enlargement - Extremities Exam Extremities exam: Present: normal inspection - Back Exam Back exam: Present: normal inspection - Neurological Exam Neurological exam: Present: alert, oriented X3 - Psychiatric Psychiatric exam: Present: normal affect, normal mood - Skin Skin exam: Present: warm, dry, intact, normal color. Absent: rash ED Course Vital Signs 10/31/18 22:20 Temperature 99 F Pulse Rate 57 L Respiratory 18 Rate Blood Pressure 101/64 O2 Sat by Pulse 98 Oximetry ED Medical Decision Making - Lab Data Result diagrams: 10/31/18 22:26 10/31/18 22:26 Critical care attestation.: If time is entered above; I have spent that time in minutes in the direct care of this critically ill patient, excluding procedure time. ED Disposition Is pt being admited?: No Does the pt Need Aspirin: No
--- NOTE | 2018-11-01 04:59 | Ultrasound Report ---
Transabdominal pelvic ultrasound INDICATION / CLINICAL INFORMATION: Pelvic pain and mild vaginal bleeding. COMPARISON: None available. FINDINGS: The uterus measures 9.2 x 4.7 x 5.2 cm. The endometrial stripe measures approximately 1.4 cm AP. Ther e is an IUD well situated within the endometrial cavity. No fibroids are seen. The right ovary measures 2.1 x 1.3 x 1.4 cm and the left ovary 2.1 x 1.3 x 1.8 cm. There is a 1 cm fo llicular cyst in the left ovary. There is normal blood flow to both ovaries on Doppler exam. No free fluid is seen. IMPRESSION: No significant abnormality is identified. Signer Name: Prakash Pereira MD Signed: 11/01/2018 4:54 AM Workstation Name: [id number] [employer]
[2018-11-01 07:27] VITALS: BP 91/62
== END 2018-11-01 07:28 | disposition home or self-care (01) ==
LOC: ED 22:13
DX: N76.0 Acute vaginitis (principal); B96.89 Other specified bacterial agents as the cause of diseases classified elsewhere; Z91.040 Latex allergy status; Z88.2 Allergy status to sulfonamides
CPT/HCPCS: 36415; 76856; 80053; 81001; 84703; 85025; 87210; 87591